=== PATIENT | male | born 1980 | race Caucasian/White ===

== ENCOUNTER 2023-07-10 17:54 | Emergency (ER) | payer OTHER, SELFPAY ==
--- NOTE | ~2023-07-10 | CT_ITS ---
EXAMINATION: CT abdomen pelvis w con INDICATION: Weight loss, abdominal pain TECHNIQUE: Computed tomographic images of the abdomen and pelvis were obtained after the administrati on of 100 cc of Omnipaque 350 intravenous contrast. The dose-length product (DLP) was 225.71 mGy-cm. Automated exposure control and iterative reconstruction technique were employed. COMPARISON: None available FINDINGS: Minimal dependent atelectasis is present in the lung bases. The heart size is normal. There is a 3 mm cyst of the liver. Punctate calcifications in an otherwise normal spleen likely represent healed granulomatous disease. The pancreas, gallbladder, and adrenal glands are normal. The kidneys a re unremarkable. No pathologically enlarged abdominal or pelvic lymph nodes are identified. Calcified atherosclerosis is noted. No free intraperitoneal gas or evidence of bowel obstruction. A moderate v olume of colonic stool is present. IMPRESSION: 1. Constipation Reviewed, dictated and finalized at location F. IMPRESSION: 1. Constipation
[2023-07-10 17:55] VITALS: BP 128/97; PULSE 88; RESP 17; O2SAT 97
--- NOTE | 2023-07-10 18:26 | ECG_ITS ---
Measurements Intervals [place] Rate: 75 P: 78 [place]: 149 QRS: 82 QRSD: 110 T: 70 QT: 377 QTc: 422 Interpretive Statements SINUS RHYTHM WITH SINUS ARRHYTHMIA INCOMPLETE RIGHT BUNDLE BRANCH BLOCK BORDERLINE ECG NO PREVIOUS ECG AVAILABLE FOR COMPARISON Electronically Signed On 07-11-2023 6:15:17 CDT by Cecilio Bradley D.O.
[2023-07-10] MEDS: ONDANSETRON INJ 4 MG/2 ML VIAL IV PUSH (18:53)
[2023-07-10] MEDS: SODIUM CHLORIDE 0.9% IV 1,000 ML 999 ML IV CONT (18:53)
[2023-07-10 18:54] LABS: Appearance Urine Clear (Clear); Bacteria Urine None Seen /hpf; Bilirubin Urine Negative (Negative); Blood Urine Trace (Negative); Color Urine Yellow (Yellow); Glucose Urine UA Negative (Negative); Ketones Urine 2+ mg/dL (Negative); Leukocyte Esterase Ur Negative LEU/UL (Negative); Nitrate Urine Negative (Negative); Non Pathogenic Casts 0-2; Protein Urine Negative (Negative); RBC Urine 0-2 /hpf (0-2); Specific Grav Ur 1.008 (1.001-1.035); Squamous Epithelial Cell Urine None seen /hpf (Few); WBC Urine 0-5 /hpf
[2023-07-10 18:55] LABS: Add Urine Microscopic? YES
--- NOTE | 2023-07-10 19:08 | PC.NURSE ---
Assumed care of pt from VANESA Cole at this time.
[2023-07-10 19:20] VITALS: BP 119/96; PULSE 84; RESP 11; O2SAT 100
[2023-07-10 19:23] LABS: Basophils Absolute Auto 0.1 K/mm3 (0.0-0.1); Basophils Percent Auto 0.8 % (0.2-1.2); Eosinophils Percent Auto 0.1 % (0-4.4); Hematocrit 41.3 % (42.0-52.0); Immature Granulocyte Absolute 0.02 K/mm3 (0.00-0.031); Immature Granulocyte Percent A 0.2 % (0-0.5); Lymphocytes Absolute Auto 1.67 K/mm3 (0.9-3.2); Mean Corpuscular HGB Conc 33.9 g/dl (32-36); Mean Corpuscular Volume 88.4 fl (80-100); Mean Platelet Volume 10.2 fl (7.4-10.4); Monocytes Absolute Auto 0.4 K/mm3 (0.1-0.6); Monocytes Percent Auto 4.7 % (2.6-8.5); Neutrophils Absolute Auto 6.2 K/mm3 (1.3-6.7); Neutrophils Percent Auto 74.2 % (45.5-73.1); Platelet Count Result 252 k/mm3 (150-375); Red Blood Count 4.67 M/mm3 (4.6-6.20); Red Cell Distribution Width 12.2 % (11.5-14.5); White Blood Count 8.3 K/mm3 (4.5-10.0)
[2023-07-10 19:26] LABS: Influenza A QL RT-PCR Negative (Negative); Influenza B QL RT-PCR Negative (Negative); RSV RNA, RT-PCR Negative (Negative); SARS-CoV-2 RNA PCR Negative (Negative)
[2023-07-10 19:33] LABS: Ethanol < 10 mg/dL (<10)
[2023-07-10 19:34] LABS: Amphetamine Screen Urine Negative (Negative); Barbiturate Screen Urine Negative (Negative); Benzodiazepines Screen Urine Negative (Negative); Cannabinoid Screen Urine Negative (Negative); Cocaine Screen Urine Negative (Negative); Methadone Screen Urine Negative (Negative); Opiate Screen Urine Negative (Negative); Phencyclidine Screen Urine Negative (Negative)
[2023-07-10 19:35] LABS: Alanine Aminotransferase 15 U/L (6-50); Albumin Level 4.3 g/dL (3.5-5.1); Alkaline Phosphatase 133 U/L (38-126); Anion Gap 8 mmol/L (8-16); Aspartate Amino Transferase 23 U/L (17-59); Bilirubin,Total 1.1 mg/dL (0.2-1.3); Blood Urea Nitrogen 8 mg/dL (9-20); Calcium 8.7 mg/dL (8.4-10.2); Carbon Dioxide 24 mmol/L (22-30); Chloride 106 mmol/L (98-107); Estimated CRCL calculation 114 ml/min; Estimated Glomerular Filt Rate > 60; Glucose 101 mg/dL (65-110); Magnesium 2.3 mg/dL (1.6-2.3); Potassium 3.6 mmol/L (3.4-5.0); Sodium 138 mmol/L (137-145)
[2023-07-10 19:46] VITALS: BP 134/88; PULSE 72; RESP 16; O2SAT 100
[2023-07-10 19:46] LABS: Troponin I < 0.012 ng/mL (0.000-0.034)
[2023-07-10 20:16] VITALS: BP 127/90; PULSE 74; RESP 17; O2SAT 100
[2023-07-10] MEDS: diphenhydrAMINE HCl INJ 50 MG/ML VIAL 25 MG IV PUSH (20:26)
[2023-07-10] MEDS: METOCLOPRAMIDE HCL INJ 10 MG/2 ML VIAL IV PUSH (20:27)
--- NOTE | 2023-07-10 21:05 | ED.SYNCOPE ---
HPI - Syncope General Chief Complaint: Syncope Stated Complaint: syncopal Time Seen by Provider: 07/10/23 18:26 History of Present Illness HPI narrative: Patient was at work earlier when he felt nauseous like he was going to pass out, call for help, and then he was found passed out in his truck, per bystanders he passed out again after this, no signs of seizures or seizure-like activity, no postictal state, no chest pain or difficulty breathing. He tells me that he has been dealing with nausea vomiting and abdominal pain on and off for a while now, was started on Zofran by his doctor still quite nauseous, worse when he wakes up and feels like he cannot keep anything down. Related Data Allergies Allergy/AdvReac Type Severity Reaction Status Date / Time azithromycin Allergy Unknown HIVES Verified 05/31/23 13:54 lamotrigine Allergy Unknown abd pain Verified 05/31/23 13:54 Review of Systems Review of Systems: CONST: No fever. HEENT: No sore throat C/V: No chest pain RESP: No cough GI: Reports abdominal pain, nausea, vomiting : No dysuria. M/S: No joint pain. SKIN: No rash. NEURO: Syncope PSYCH: [No depression] [facility] Past Medical History Medical History History of seizure disorder Insomnia Major depressive disorder, recurrent, moderate Tobacco use Varicella zoster Family History Family History Mother Hypertension Family history of heart disease in male family member before age 55 Father Family history of diabetes mellitus in first degree relative Social History Social History Social History: Smoking packs per day: 1 Smoking cigarettes per day: 20.0 Years smoked: 28 Smoking pack-years: 28.00 Smoking status: Current every day smoker Tobacco type: cigarettes Second hand tobacco smoke exposure: Yes Alcohol intake: never Substance use: never Substance use type: does not use Living arrangements: with family Occupation/Education: occupation Gender identity (if verbalized by the patient): Male Sexual Orientation (if Verbalized by the Patient): Straight or Heterosexual Exam Narrative: EXAMINATION OF ORGAN SYSTEMS/BODY AREAS: Constitutional: Vital signs per nursing GENERAL:[No acute distress, non-toxic appearing.] HEAD: Normal with no signs of head trauma. EYES: EOMI, conjunctiva normal ENT: Hearing grossly intact LUNGS: Nonlabored breathing. HEART: [Regular rate and rhythm] ABD: [Soft], mild discomfort to palpation upper abdomen EXT: Normal range of motion SKIN: [No rashes or lesions.] NEURO: [Alert and oriented x 3. No gross focal sensory or strength deficits.] PSYCH: Normal affect Course Vital Signs Vital signs: Vital Signs Pulse Rate 88 07/10/23 17:55 Respiratory Rate 17 07/10/23 17:55 Blood Pressure 128/97 H 07/10/23 17:55 Pulse Oximetry 97 07/10/23 17:55 Oxygen Delivery Room Air 07/10/23 17:55 Pulse Rate 63 07/10/23 21:35 Respiratory Rate 16 07/10/23 21:35 Blood Pressure 111/79 07/10/23 21:35 Pulse Oximetry 100 07/10/23 21:35 Oxygen Delivery Room Air 07/10/23 17:55 MDM - Syncope MDM Narrative Medical decision making narrative: Electronic medical record was reviewed. Patient presented to the ED with complaint of syncope after 1 week of [abdominal pain and vomiting]. Vitals [were within acceptable limits]. Physical exam revealed well-appearing patient with soft, minimally tender abdomen. Based on the patient's history and physical exam, my differential includes but is not limited to [gastritis, gastroenteritis, cholecystitis, pancreatitis, appendicitis, dehydration; patient adamantly denies any illicit drug use or alcohol use, I will have low concern for cardiac etiology without any chest pain or difficulty breathing, and given that he did h
[2023-07-10 21:35] VITALS: BP 111/79; PULSE 63; RESP 16; O2SAT 100
[2023-07-10] MEDS: FAMOTIDINE 20 MG TABLET PO (21:35)
[2023-07-10] MEDS: MAG HYDROX/AL HYDROX/SIMETH 30 ML UDC PO (21:35)
[2023-07-10 21:57] VITALS: BP 110/82; PULSE 67; RESP 15; O2SAT 99
== END 2023-07-10 22:01 | disposition home or self-care (01) ==
PROVIDERS: Emergency Provider Emergency Medicine; PCP Family Medicine
DX: E86.0 Dehydration (principal); R55 Syncope and collapse; R11.2 Nausea with vomiting, unspecified; G40.909 Epilepsy, unspecified, not intractable, without status epilepticus; F17.210 Nicotine dependence, cigarettes, uncomplicated
CPT/HCPCS: 36415; 74177; 80053; 80307; 81001; 83735; 84484; 85025; 87637; 93005; 96361; 96374; 96375; 99284; A9270; J1200; J2405; J2765; J7030; Q9967

== ENCOUNTER 2023-09-11 09:11 | Outpatient (CLI) | payer OTHER, SELFPAY ==
--- NOTE | 2023-09-11 09:26 | EST_ITS ---
Patient Info Name: Garfield Rosa Age: 43 years : 1980 Gender: Male Ht: 72 in Wt: 147 lbs BSA: 1.83 m2 HR: 86 bpm BP: 154 / 95 mmHg Heart Rhythm: Sinus Rhythm Exam Date: 09/11/2023 9:39 AM Exam Location: Echo Lab Patient Status: Outpatient Admit Date: 09/11/2023 Staff Ordering Physician: Cecilio Bradley DO Attending Provider: Cecilio Bradley DO Exercise Technologist: Asha Sibley CT Exercise Physician: Cecilio Bradley DO Exam Type: CA stress test treadmill Study Info A treadmill exercise stress test was performed. Summary 1. 1. Negative Dominick exercise stress test for ischemic ST changes by ECG criteria. 2. 2. Good functional capacity, achieving 12 METs of workload. 3. 3. Baseline hypertension. 4. 4. Appropriate HR response to exercise. 5. 5. Appropriate HR recovery at 1 minute post exercise. 6. 6. No imaging with stress testing. 7. 7. Patient informed of the above results. Protocol: Dominick Stress ECG Details Stage: REST Duration (min): 1 min : 5 sec Speed (mph): 0.0 Grade (%): 0 HR (bpm): 88 SBP (mmHg): 154 DBP (mmHg): 95 METS: --- Stage: REST Duration (min): 11 min : 34 sec Speed (mph): 0.0 Grade (%): 0 HR (bpm): 82 SBP (mmHg): 154 DBP (mmHg): 95 METS: --- Stage: STAGE 1 Duration (min): 1 min : 0 sec Speed (mph): 1.7 Grade (%): 10 HR (bpm): 104 SBP (mmHg): 154 DBP (mmHg): 95 METS: --- Stage: STAGE 1 Duration (min): 2 min : 0 sec Speed (mph): 1.7 Grade (%): 10 HR (bpm): 110 SBP (mmHg): 154 DBP (mmHg): 95 METS: --- Stage: STAGE 1 Duration (min): 3 min : 0 sec Speed (mph): 1.7 Grade (%): 10 HR (bpm): 110 SBP (mmHg): 134 DBP (mmHg): 95 METS: --- Stage: STAGE 2 Duration (min): 1 min : 0 sec Speed (mph): 2.5 Grade (%): 12 HR (bpm): 111 SBP (mmHg): 134 DBP (mmHg): 95 METS: --- Stage: STAGE 2 Duration (min): 2 min : 0 sec Speed (mph): 2.5 Grade (%): 12 HR (bpm): 120 SBP (mmHg): 156 DBP (mmHg): 94 METS: --- Stage: STAGE 2 Duration (min): 3 min : 0 sec Speed (mph): 2.5 Grade (%): 12 HR (bpm): 120 SBP (mmHg): 156 DBP (mmHg): 94 METS: --- Stage: STAGE 3 Duration (min): 1 min : 0 sec Speed (mph): 3.4 Grade (%): 14 HR (bpm): 130 SBP (mmHg): 176 DBP (mmHg): 115 METS: --- Stage: STAGE 3 Duration (min): 2 min : 0 sec Speed (mph): 3.4 Grade (%): 14 HR (bpm): 137 SBP (mmHg): 176 DBP (mmHg): 115 METS: --- Stage: STAGE 3 Duration (min): 3 min : 0 sec Speed (mph): 3.4 Grade (%): 14 HR (bpm): 133 SBP (mmHg): 132 DBP (mmHg): 91 METS: --- Stage: STAGE 4 Duration (min): 1 min : 0 sec Speed (mph): 4.2 Grade (%): 16 HR (bpm): 151 SBP (mmHg): 132 DBP (mmHg): 91 METS: --- Stage: STAGE 4 Duration (min): 2 min : 0 sec Speed (mph): 4.2 Grade (%): 16 HR (bpm): 156 SBP (mmHg): 182 DBP (mmHg): 96 METS: ---
== END 2023-09-11 09:12 | disposition home or self-care (01) ==
LOC: ANHCARD 09:13
PROVIDERS: PCP Family Medicine; Visit Provider Internal Medicine Cardiovascular Disease
DX: R07.9 Chest pain, unspecified (principal)
CPT/HCPCS: 93017

== ENCOUNTER 2024-09-22 12:00 | Emergency (ER) | payer OTHER, SELFPAY ==
--- NOTE | ~2024-09-22 | XR_ITS ---
EXAMINATION: XR chest 2V Exam Date/Time: 09/22/2024 13:50 TOPOGRAPHICAL DRAFTER HISTORY: productive cough Comparison: 12/02/2018. RESULT: Lines, tubes, and devices: None. Lungs and pleura: Clear. Cardiomediastinal silhouette: Stable. Other: No acute osseous or upper abdominal finding. IMPRESSION: No acute cardiopulmonary process. Reviewed, dictated and finalized at location K. GRAPHICAL DRAFTER
[2024-09-22 12:26] VITALS: BP 132/89; PULSE 92; RESP 24; TEMP 37.2; O2SAT 99
--- NOTE | 2024-09-22 13:15 | ED_ITS ---
HPI - URI/Sore Throat General Chief Complaint: Upper Respiratory Infection Stated Complaint: difficulty breathing,pain center of chest,cough Time Seen by Provider: 09/22/24 13:17 History of Present Illness HPI Narrative: Patient presents with complaints of wheezing and productive cough that is been present for couple of days. He is unsure fever status. He does report chills and sweats. Patient does report history of COPD. He reports that daughter who lives in household was recently treated for ?walking pneumonia?. He is concerned because his symptoms are quite similar to hers. He reports that he has had decreased energy, fatigue. He denies any shortness of breath. He voic es no other concerns or complaints this time. States that he has been taking ibuprofen intermittently for symptoms Related Data Allergies Allergy/AdvReac Type Severity Reaction Status Date / Time azithromycin Allergy Unknown HIVES Verified 09/22/24 12:31 lamotrigine Allergy Unknown abd pain Verified 09/22/24 12:31 Review of Systems Review of Systems: All systems reviewed & are unremarkable except as noted in HPI and below Constitutional: Constitutional: Reports as per HPI and Reports no additional constitutional complaints ENT: Reports system reviewed and no additional complaints, except as documented Cardiovascular: Cardiovascular: Reports no additional cardiovascular complaints Respiratory: Respiratory: Reports no additional respiratory complaints, Reports change in phlegm color, Reports chest congestion, Reports cough, Reports excessive phlegm production and Reports pain with cough Gastrointestinal: Gastrointestinal: Reports no additional gastrointestinal complaints PMFSH Past Medical History Medical History Varicella zoster History of seizure disorder Tobacco use Insomnia Major depressive disorder, recurrent, moderate Family History Family History Mother Hypertension Family history of heart disease in male family member before age 55 Father Family history of diabetes mellitus in first degree relative Social History Social History Social History: Smoking packs per day: 1 Smoking cigarettes per day: 20.0 Years smoked: 28 Smoking pack-years: 28.00 Smoking status: Current every day smoker Tobacco type: cigarettes Second hand tobacco smoke exposure: Yes Alcohol intake: never Substance use: never Substance use type: does not use Do You Feel Safe in your Home?: Yes Lack of Transportation: No Lack of Food: Never True Current Housing: I Have Housing Concerned About Future Housing: No Difficulty Paying Gas/Electric Bills: No Difficulty Paying for Meds: No Currently Unemployed: No Education: Don't Know Difficulty w/ Childcare or Family Care: No Living arrangements: with family Occupation/Education: occupation Gender identity (if verbalized by the patient): Male Sexual Orientation (if Verbalized by the Patient): Straight or Heterosexual Exam Const: General: cooperative, no acute distress, alert and awake Orientation/consciousness: oriented to person, oriented to place and oriented to time HENMT: Head: normal to inspection Ears: TM's normal bilaterally Mouth: Yes moist mucous membranes Throat: posterior oropharynx abnormal erythema Resp: Effort & Inspection: normal respiratory effort and able to speak in complete sentences Auscultation: crackles bilateral at the base, no rales, no rhonchi, no wheezes and diminished lung sounds Cardio: Palpation: normal PMI Rate: regular rate Rhythm: regular rhythm Heart sounds: S1 normal heart sound present and S2 normal heart sound present Neuro: General: oriented to person, oriented to place and oriented to time Cranial nerves: Yes CN's II-XII intact bilaterally Psych: Appearance: grossly normal Thought process: Normal thought process present Insight: Good insight present (Psych) Judgement: Good judgement present (Psych) Course Course Level of Care: Express Care Visit Vital Signs Vital signs: Vital Signs Temperature 98.9 F 09/22/24 12:26 Pulse Rate 92 09/22/24 12:26 Respiratory Rate 24 H 09/22/24 12:26 Blood Pressure 132/89 09/22/24 12:26 Pulse Oximetry 99 09/22/24 12:26 Oxygen Delivery Room Air 09/22/24 12:26 Temperature 98.9 F 09/22/24 12:26 Pulse Rate 92 09/22/24 12:26 Respiratory Rate 24 H 09/22/24 12:26 Blood Pressure 132/89 09/22/24 12:26 Pulse Oximetry 99 09/22/24 12:26 Oxygen Delivery Room Air 09/22/24 12:26 MDM - URI/Sore Throat MDM Narrative Medical decision making narrative: Patient with daughter in home recently treated for atypical pneumonia. Patient with symptoms concerning for same. X-ray is clear. Patient does have history o f COPD. Admits that he is not taking medications for this. He is not in any respiratory distress, but does have crackles at bilateral bases, diminished lung sounds. Cover with doxycycline as patient is allergic to azithromycin. Start bronchodilator, steroid burst. Follow with primary care provider. Emergency department for new or worse symptoms. Discharge instructions reviewed with patient, as well as provided in writing per nursing staff. The instructions also include specific and strict return/GO TO THE ER as well as f/u information. All questions have been answered, and the patient deny any further questions with discharge and discharge plan. Some parts of this dictation were generated by voice recognition software and may contain typographical and/or grammatical inaccuracies. Differential Diagnosis Differential diagnosis: Likely upper respiratory infection, otitis media, sinusitis, viral infection, bronchitis and influenza Medical Records Attestation: I reviewed the patient's medical records. Imaging Data Attestation: I personally reviewed and interpreted this imaging study as follows: My impression: Negative for acute process Radiologist's impression: [facility] [address] [place] [address] XRay Report Signed Patient: Garfield Rosa : 1980 MR#: [id number] Age: 44 Acct:[id number] Loc: [facility] ADM Date: 09/22/24Attending Dr: Ordering Physician: Jennifer Zhao FNP Date of Service: 09/22/24 Procedure(s): XR chest 2V Accession Number(s): [id number] cc: Jennfier Zhao FNP; Tricia Soriano MD~ EXAMINATION: XR chest 2V Exam Date/Time: 09/22/2024 13:50 CRYPTOLOGIC TECHNICIAN HISTORY: productive cough Comparison: 12/02/2018. RESULT: Lines, tubes, and devices: None. Lungs and pleura: Clear. Cardiomediastinal silhouette: Stable. Other: No acute osseous or upper abdominal finding. IMPRESSION: No acute cardiopulmonary process. Reviewed, dictated and finalized at location K. TOLOGIC TECHNICIAN Dictated By: Tesfaye Lewis MD 09/22/24 1403 Signed By: <Electronically signed by Tesfaye Lewis MD in OV> 09/22/24 140 Discharge Plan Discharge Clinical Impression: Atypical pneumonia Patient Disposition: Home, Self-Care Condition: Stable Instructions: Antibiotic Form, Community Acquired Pneumonia (ED) Additional Instructions: Take all medications as prescribed. Follow-up with primary care provider. Emergency department for new or worse symptoms Patient Language: Upper Sorbian Prescriptions: New doxycycline hyclate 100 mg capsule 100 mg PO BID Qty: 20 0RF prednisone 50 mg tablet 50 mg PO DAILY Qty: 5 0RF albuterol sulfate [Ventolin HFA] 90 mcg/actuation HFA aerosol inhaler 2 puff inhalation QID PRN (Reason: shortness of breath or wheezing) Qty: 8.5 0RF No Action triamcinolone acetonide 0.1 % cream 1 applic topical BID Qty: 30 0RF paroxetine HCl [Paxil] 20 mg tablet 20 mg PO DAILY Qty: 90 1RF omeprazole 40 mg capsule,delayed release(DR/EC) See Rx Instructions .ROUTE .COMPLEX Qty: 90 0RF Dose Instruction: TAKE 1 CAPSULE BY MOUTH DAILY Rx Instructions: TAKE 1 CAPSULE BY MOUTH DAILY Follow-up/Referrals: Tricia Soriano MD [Primary Care Provider] - 1 Week Stand Alone Forms: Work/School Release IP Time of Disposition: 14:19
== END 2024-09-22 14:22 | disposition home or self-care (01) ==
PROVIDERS: Emergency Provider Nurse Practitioner Family; PCP Family Medicine
DX: J18.9 Pneumonia, unspecified organism (principal); F17.210 Nicotine dependence, cigarettes, uncomplicated
CPT/HCPCS: 71046; 99213; G0463

== ENCOUNTER 2024-10-14 16:16 | Emergency (ER) | payer OTHER, SELFPAY ==
[2024-10-14 16:29] VITALS: BP 143/97; PULSE 95; RESP 16; TEMP 36.6; O2SAT 100
--- NOTE | 2024-10-14 18:00 | PC.NURSE ---
pt. called multiple times for triage. no answer.
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
--- OUTSIDE RECORDS SUMMARY | 2024-10-21 14:14 | XMS_ITS | Patient Health Summary ---
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 EXAM: CT Spine thoracic and lumbar reconstruction CLINICAL INDICATION: Trauma TECHNIQUE: 2 mm axial images through thoracic and lumbar spine obtained from a prior body CT. 2D sagittal and coronal reformatted images werealso obtained from source image data set. COMPARISON: None FINDINGS: Thoracic spine: Thoracic spine alignment is normal. No acute thoracic spine fracture or traumatic spondylolisthesis. No significant traumatic acute disc herniation. Prevertebral and posterior paraspinal soft tissues demonstrate no significant acute soft tissue injury. Mild multilevel degenerative changes are present. Lumbar spine: Lumbar spine alignment is normal. No acute lumbar spine fracture or traumatic spondylolisthesis. No significant traumatic acute disc herniation. Prevertebral and posterior paraspinal soft tissues demonstrate no significant acute soft tissue injury. There is mild aortic atherosclerosis. IMPRESSION: No acute fracture in the thoracic or lumbar spine. Drafted by Tyesha Buckley (residential assistant) I, Dr. JAH MURRAY have personally reviewed and interpreted this examination/study. This report was electronically signed by JAH MURRAY on 08/16/2021 7:44 AM. Db Ortez MD CT ORDERABLES * CT CERVICAL SPINE WO CONTRAST - C-Spine Trauma, Spine fracture (08/15/2021 4:53 PM CDT) Anatomical Region Laterality Modality Spine Computed Tomogra phy 08/15/2021 5:05 PM CDT Impressions 08/16/2021 7:44 AM CDT IMPRESSION: No acute intracranial abnormality. EXAM: CT SPINE CERVICAL WITHOUT CONTRAST EXAM DATE: 08/15/2021 4:55 PM HISTORY: Trauma TECHNIQUE: Contiguous axial images through cervical spine were obtained without IV contrast administration. ??2D sagittal and coronal reformatted images were obtained from the source image data set. COMPARISON: None FINDINGS: No acute cervical spine fracture or traumatic spondylolisthesis. No significant traumatic acute disc herniation. ??Prevertebral and posterior paraspinal soft tissues demonstrate no significant acute soft tissue injury. Mild multilevel degenerative changes are present. C6-C7: Chronic disc height loss with anterior and posterior disc bulges with endplate osteophytes and uncovertebral joint hypertrophy are noted. Moderate right and severe left foraminal stenoses with a mild central spinal stenosis. IMPRESSION: 1. No acute fracture of the cervical spine. EXAM: CT Spine thoracic and lumbar reconstruction CLINICAL INDICATION: Trauma TECHNIQUE: 2 mm axial images through thoracic and lumbar spine obtained from a prior body CT. 2D sagittal and coronal reformatted images were also obtained from source image data set. COMPARISON: None FINDINGS: Thoracic spine: Thoracic spine alignment is normal. ??No acute thoracic spine fracture or traumatic spondylolisthesis. No significant traumatic acute disc herniation. ??Prevertebral and posterior paraspinal soft tissues demonstrate no significant acute soft tissue injury. Mild multilevel degenerative changes are present. Lumbar spine: Lumbar spine alignment is normal. ??No acute lumbar spine fracture or traumatic spondylolisthesis. No significant traumatic acute disc herniation. ??Prevertebral and posterior paraspinal soft tissues demonstrate no significant acute soft tissue injury. There is mild aortic atherosclerosis. IMPRESSION: No acute fracture in the thoracic or lumbar spine. Drafted by Tyesha Buckley (residential assistant) I, Dr. JAH MURRAY have personally reviewed and interpreted this examination/study. This report was electronically signed by JAH MURRAY ??on 08/16/2021 7:44 AM . Narrative 08/16/2021 7:44 AM CDT EXAM: CT BRAIN WITHOUT CONTRAST CLINICAL INDICATION: Trauma TECHNIQUE: Contiguous axial images through head were obtained without intravenous contrast administration. ??Brain and bone window images were obtained. COMPARISON: No prior. FINDINGS: Artifact in the posterior fossa from dental metal. Brain volume is normal for age. No significant midline shift or hydrocephalus. No large acute infarction, hemorrhage, mass or abnormal extra-axial fluid collection. No acute fracture or bony abnormality. No acute abnormality involving the orbits bilaterally. Visualized parts of paranasal sinuses demonstrate a mild mucosal disease. Visualized mastoids and tympanic cavities demonstrate no significant opacification. Procedure Note Jah Murray MD - 08/16/2021 EXAM: CT BRAIN WITHOUT CONTRAST CLINICAL INDICATION: Trauma TECHNIQUE: Contiguous axial images through head were obtained without intravenous contrast administration. Brain and bone window images were obtained. COMPARISON: No prior. FINDINGS: Artifact in the posterior fossa from dental metal. Brain volume is normal for age. No significant midline shift or hydrocephalus. No large acute infarction, hemorrhage, mass or abnormal extra-axialfluid collection. No acute fracture or bony abnormality. No acute abnormality involving the orbits bilaterally. Visualized parts of paranasal sinuses demonstrate a mild mucosaldisease. Visualized mastoids and tympanic cavities demonstrate no significant opacification. IMPRESSION: No acute intracranial abnormality. EXAM: CT SPINE CERVICAL WITHOUT CONTRAST EXAM DATE: 08/15/2021 4:55 PM HISTORY: Trauma TECHNIQUE: Contiguous axial images through cervical spine were obtained without IV contrast administration. 2D sagittal and coronal reformatted images were obtained from the source image data set. COMPARISON: None FINDINGS: No acute cervical spine fracture or traumatic spondylolisthesis. No significant traumatic acute disc herniation. Prevertebral and posterior paraspinal soft tissues demonstrate no significant acute soft tissue injury. Mild multilevel degenerative changes are present. C6-C7: Chronic disc height loss with anterior and posterior disc bulges with endplate osteophytes and uncovertebral joint hypertrophy are noted. Moderate right and severe left foraminal stenoses with a mild central spinal stenosis. IMPRESSION: 1. No acute fracture of the cervical spine. EXAM: CT Spine thoracic and lumbar reconstruction CLINICAL INDICATION: Trauma TECHNIQUE: 2 mm axial images through thoracic and lumbar spine obtained from a prior body CT. 2D sagittal and coronal reformatted images werealso obtained from source image data set. COMPARISON: None FINDINGS: Thoracic spine: Thoracic spine alignment is normal. No acute thoracic spine fracture or traumatic spondylolisthesis. No significant traumatic acute disc herniation. Prevertebral and posterior paraspinal soft tissues demonstrate no significant acute soft tissue injury. Mild multilevel degenerative changes are present. Lumbar spine: Lumbar spine alignment is normal. No acute lumbar spine fracture or traumatic spondylolisthesis. No significant traumatic acute disc herniation. Prevertebral and posterior paraspinal soft tissues demonstrate no significant acute soft tissue injury. There is mild aortic atherosclerosis. IMPRESSION: No acute fracture in the thoracic or lumbar spine. Drafted by Tyesha Buckley (residential assistant) I, Dr. JAH MURRAY have personally reviewed and interpreted this examination/study. This report was electronically signed by JAH MURRAY on 08/16/2021 7:44 AM. Db Ortez MD CT ORDERABLES * CT HEAD WO CONTRAST - Head Trauma, CSF leak, mental status changes (08/15/2021 4:53 PM CDT) Anatomical Region Laterality Modality Head Computed Tomogra phy 08/15/2021 5:05 PM CDT Impressions 08/16/2021 7:44 AM CDT IMPRESSION: No acute intracranial abnormality. EXAM: CT SPINE CERVICAL WITHOUT CONTRAST EXAM DATE: 08/15/2021 4:55 PM HISTORY: Trauma TECHNIQUE: Contiguous axial images through cervical spine were obtained without IV contrast administration. ??2D sagittal and coronal reformatted images were obtained from the source image data set. COMPARISON: None FINDINGS: No acute cervical spine fracture or traumatic spondylolisthesis. No significant traumatic acute disc herniation. ??Prevertebral and posterior paraspinal soft tissues demonstrate no significant acute soft tissue injury. Mild multilevel degenerative changes are present. C6-C7: Chronic disc height loss with anterior and posterior disc bulges with endplate osteophytes and uncovertebral joint hypertrophy are noted. Moderate right and severe left foraminal stenoses with a mild central spinal stenosis. IMPRESSION: 1. No acute fracture of the cervical spine. EXAM: CT Spine thoracic and lumbar reconstruction CLINICAL INDICATION: Trauma TECHNIQUE: 2 mm axial images through thoracic and lumbar spine obtained from a prior body CT. 2D sagittal and coronal reformatted images were also obtained from source image data set. COMPARISON: None FINDINGS: Thoracic spine: Thoracic spine alignment is normal. ??No acute thoracic spine fracture or traumatic spondylolisthesis. No significant traumatic acute disc herniation. ??Prevertebral and posterior paraspinal soft tissues demonstrate no significant acute soft tissue injury. Mild multilevel degenerative changes are present. Lumbar spine: Lumbar spine alignment is normal. ??No acute lumbar spine fracture or traumatic spondylolisthesis. No significant traumatic acute disc herniation. ??Prevertebral and posterior paraspinal soft tissues demonstrate no significant acute soft tissue injury. There is mild aortic atherosclerosis. IMPRESSION: No acute fracture in the thoracic or lumbar spine. Drafted by Tyesha Buckley (residential assistant) I, Dr. JAH MURRAY have personally reviewed and interpreted this examination/study. This report was electronically signed by JAH MURRAY ??on 08/16/2021 7:44 AM . Narrative 08/16/2021 7:44 AM CDT EXAM: CT BRAIN WITHOUT CONTRAST CLINICAL INDICATION: Trauma TECHNIQUE: Contiguous axial images through head were obtained without intravenous contrast administration. ??Brain and bone window images were obtained. COMPARISON: No prior. FINDINGS: Artifact in the posterior fossa from dental metal. Brain volume is normal for age. No significant midline shift or hydrocephalus. No large acute infarction, hemorrhage, mass or abnormal extra-axial fluid collection. No acute fracture or bony abnormality. No acute abnormality involving the orbits bilaterally. Visualized parts of paranasal sinuses demonstrate a mild mucosal disease. Visualized mastoids and tympanic cavities demonstrate no significant opacification. Procedure Note Jah Murray MD - 08/16/2021 EXAM: CT BRAIN WITHOUT CONTRAST CLINICAL INDICATION: Trauma TECHNIQUE: Contiguous axial images through head were obtained without intravenous contrast administration. Brain and bone window images were obtained. COMPARISON: No prior. FINDINGS: Artifact in the posterior fossa from dental metal. Brain volume is normal for age. No significant midline shift or hydrocephalus. No large acute infarction, hemorrhage, mass or abnormal extra-axialfluid collection. No acute fracture or bony abnormality. No acute abnormality involving the orbits bilaterally. Visualized parts of paranasal sinuses demonstrate a mild mucosaldisease. Visualized mastoids and tympanic cavities demonstrate no significant opacification. IMPRESSION: No acute intracranial abnormality. EXAM: CT SPINE CERVICAL WITHOUT CONTRAST EXAM DATE: 08/15/2021 4:55 PM HISTORY: Trauma TECHNIQUE: Contiguous axial images through cervical spine were obtained without IV contrast administration. 2D sagittal and coronal reformatted images were obtained from the source image data set. COMPARISON: None FINDINGS: No acute cervical spine fracture or traumatic spondylolisthesis. No significant traumatic acute disc herniation. Prevertebral and posterior paraspinal soft tissues demonstrate no significant acute soft tissue injury. Mild multilevel degenerative changes are present. C6-C7: Chronic disc height loss with anterior and posterior disc bulges with endplate osteophytes and uncovertebral joint hypertrophy are noted. Moderate right and severe left foraminal stenoses with a mild central spinal stenosis. IMPRESSION: 1. No acute fracture of the cervical spine. EXAM: CT Spine thoracic and lumbar reconstruction CLINICAL INDICATION: Trauma TECHNIQUE: 2 mm axial images through thoracic and lumbar spine obtained from a prior body CT. 2D sagittal and coronal reformatted images werealso obtained from source image data set. COMPARISON: None FINDINGS: Thoracic spine: Thoracic spine alignment is normal. No acute thoracic spine fracture or traumatic spondylolisthesis. No significant traumatic acute disc herniation. Prevertebral and posterior paraspinal soft tissues demonstrate no significant acute soft tissue injury. Mild multilevel degenerative changes are present. Lumbar spine: Lumbar spine alignment is normal. No acute lumbar spine fracture or traumatic spondylolisthesis. No significant traumatic acute disc herniation. Prevertebral and posterior paraspinal soft tissues demonstrate no significant acute soft tissue injury. There is mild aortic atherosclerosis. IMPRESSION: No acute fracture in the thoracic or lumbar spine. Drafted by Tyesha Buckley (residential assistant) Dr. JAH Hairston have personally reviewed and interpreted this examination/study. This report was electronically signed by JAH MURRAY on 08/16/2021 7:44 AM. Db Ortez MD CT ORDERABLES * XR PELVIS 1 OR 2VW (08/15/2021 4:28 PM CDT) Anatomical Region Laterality Modality Pelvis Radiographic Aruna ging 08/15/2021 4:55 PM CDT Impressions 08/16/2021 8:18 AM CDT IMPRESSION: No acute fracture identified. Dictated by Tyesha Buckley DO (resident). Dr. KENAN Hairston MD have personally reviewed and interpreted this examination/study. This report was electronically signed by KENAN PHAM MD ??on 08/16/2021 8:18 AM . Narrative 08/16/2021 8:18 AM CDT ORDER DATE: 08/15/2021 4:28 PM EXAMINATION: XR PELVIS 1 OR 2VW HISTORY: Trauma Fracture suspected COMPARISON: No prior study is available for comparison. FINDINGS: No acute fracture is identified. The femoral heads appear well-seated within their respective acetabula. The pubic symphysis is intact. The osseous architecture and density are normal. The sacroiliac joints are intact. Procedure Note Kenan Pham MD - 08/16/2021 ORDER DATE: 08/15/2021 4:28 PM EXAMINATION: XR PELVIS 1 OR 2VW HISTORY: Trauma Fracture suspected COMPARISON: No prior study is available for comparison. FINDINGS: No acute fracture is identified. The femoral heads appear well-seated within their respective acetabula. The pubic symphysis is intact. The osseous architecture and density are normal. The sacroiliac joints are intact. IMPRESSION: No acute fracture identified. Dictated by Tyesha Buckley DO (resident). Dr. KENAN Hairston MD have personally reviewed and interpreted this examination/study. This report was electronically signed by KENAN PHAM MD on08/16/2021 8:18 AM . Db Ortez MD DIAGNOSTIC IMAGING O RDERABLES * XR CHEST 1VW PORTABLE (08/15/2021 4:27 PM CDT) Anatomical Region Laterality Modality Chest Radiographic Aruna ging 08/15/2021 4:52 PM CDT Impressions 08/16/2021 8:17 AM CDT IMPRESSION: No acute pulmonary process. Dictated by Tyesha Buckley DO (front loader residential driver). Dr. KENAN Hairston MD have personally reviewed and interpreted this examination/study. This report was electronically signed by KENAN PHAM MD ??on 08/16/2021 8:17 AM . Narrative 08/16/2021 8:17 AM CDT ORDER DATE: 08/15/2021 4:28 PM EXAMINATION: XR CHEST 1VW PORTABLE HISTORY: Trauma COMPARISON: No prior study is available for comparison. FINDINGS: There is no focal consolidation, pleural effusion, or pneumothorax. The cardiomediastinal silhouette is normal. The visible bony thorax is intact. Procedure Note Kenan Pham MD - 08/16/2021 ORDER DATE: 08/15/2021 4:28 PM EXAMINATION: XR CHEST 1VW PORTABLE HISTORY: Trauma COMPARISON: No prior study is available for comparison. FINDINGS: There is no focal consolidation, pleural effusion, or pneumothorax. The cardiomediastinal silhouette is normal. The visible bony thorax is intact. IMPRESSION: No acute pulmonary process. Dictated by Tyesha Buckley DO (front loader residential driver). I, Dr. KENAN PHAM MD have personally reviewed and interpreted this examination/study. This report was electronically signed by KENAN PHAM MD on08/16/2021 8:17 AM . Db Ortez MD DIAGNOSTIC IMAGING O RDERABLES * PTT [facility] (08/15/2021 4:25 PM CDT) APTT 30.1 23.0 - 38.4 Seconds 08/15/2021 4:49 PM CDT [facility] Comment:Suggested therapeuti c range for full dose I.V. unfractionated heparin therapy for venous thromboembolism is 71 to 109 seconds. Blood BLOOD SPECIMEN / Unknown Venipuncture / Unknown 08/15/2021 4:25 PM CDT 08/15/2021 4:32 PM CDT Db Ortez MD LAB - COAGULATION OR DERABLES [facility] [address] [place] [address], [facility] [phone] * PT-INR [facility] (08/15/2021 4:25 PM CDT) PT 13.1 12.1 - 14.8 Seconds 08/15/2021 4:48 PM CDT [facility] INR 1.0 See Comment 08/15/2021 4:48 PM CDT [facility] Comment:The suggested therap eutic range for standard coumadin (warfarin) therapy is an INR of 2.0-3.0. For high-risk patients (Mechanical Mitral Valve Prosthesis, etc.), the suggested prophylactic therapeutic range is an INR of 2.5-3.5. Blood BLOOD SPECIMEN / Unknown Venipuncture / Unknown 08/15/2021 4:25 PM CDT 08/15/2021 4:32 PM CDT Db Ortez MD LAB - COAGULATION OR DERABLES [address] [address], [place] [phone] * TYPE + SCREEN PANEL (08/15/2021 4:25 PM CDT) [facility] Antibody Screen NEG 5:21 PM CDT [facility] ABO Rh O POS 08/15/2021 5:21 PM CDT [facility] Blood Bank BLOOD SPECIMEN / Unknown Venipuncture / Unknown 08/15/2021 4:25 PM CDT 08/15/2021 4:34 PM CDT Db Ortez MD LAB - BLOOD BANK ORD ERABLES Performing Organization Address City/[facility]/ZIP Co de Phone Number [facility] [place] [address], [place] [phone] * (ABNORMAL) DIFFERENTIAL MANUAL (08/15/2021 4:25 PM CDT) [facility] WBC (corrected for NRBC) 11.0 10? 3 /uL 08/15/2021 5:43 PM CDT [facility] Total Cell Count 100 08/15/2021 5:43 PM CDT [facility] Neutrophils Absolute Manual 7.26(H) 1.60 - 7.00 10? 3 /uL 08/15/2021 5:43 PM CDT [facility] Comment:(BANDS+SEGS) x WBC = NEUT # (ANC) Lymphocyte Absolute Manual 2.97 1.10 - 3.90 10? 3 /uL 08/15/2021 5:43 PM CDT [facility] Monocytes Absolute Manual 0.55 0.26 - 1.07 10? 3 /uL 08/15/2021 5:43 PM CDT [facility] Eosinophils Absolute Manual 0.22 0.00 - 0.47 10? 3 /uL 08/15/2021 5:43 PM CDT [facility] Neutrophil % Manual 66 35 - 70 % 08/15/2021 5:43 PM T [facility] Lymphocyte % Manual 27 20 - 43 % 08/15/2021 5:43 PM T [facility] Monocytes % Manual 5 5 - 13 % 08/15/2021 5:43 PM [facility] Eosinophils % Manual 2 0 - 6 % 08/15/2021 5:43 PM T [facility] Platelet Estimate Adequate Adequate 08/15/2021 5:43 PM T [facility] RBC Morphology Normal 08/15/2021 5:43 PM T [facility] Blood BLOOD SPECIMEN / Unknown Venipuncture / Unknown 08/15/2021 4:25 PM CDT 08/15/2021 4:33 PM CDT Db Ortez MD LAB - HEMATOLOGY ORD ERABLES [facility] [address] [place] [id number], [facility] [phone] * (ABNORMAL) CBC W AUTO DIFFERENTIAL (08/15/2021 4:25 PM CDT) WBC 11.0(H) 3.5 - 10.5 10? 3 /uL 08/15/2021 4:39 PM [facility] RBC 4.60 4.30 - 5.70 10? 6 /uL 08/15/2021 4:39 PM [facility] Hemoglobin 13.8 12.0 - 17.6 g/dL 08/15/2021 4:39 PM [facility] Hematocrit 40.0 35.2 - 51.7 % 08/15/2021 4:39 PM [facility] MCV 87.0 80.7 - 98.3 fL 08/15/2021 4:39 PM [facility] MCH 30.0 26.7 - 34.0 pg 08/15/2021 4:39 PM [facility] MCHC 34.5 30.8 - 35.9 g/dL 08/15/2021 4:39 PM [facility] Platelet Count 259 150 - 400 10? 3 /uL 08/15/2021 4:39 PM CDT [facility] RDW-SD 39.9 36.0 - 50.0 fL 08/15/2021 4:39 PM CDT [facility] RDW-CV 12.6 11.2 - 14.8 % 08/15/2021 4:39 PM CDT [facility] MPV 10.2 9.4 - 12.9 fL 08/15/2021 4:39 PM CDT [facility] nRBC Absolute 0.00 0 10? 3 /uL 08/15/2021 4:39 PM CDT [facility] nRBC Auto 0.0 0 /100 WBC 08/15/2021 4:39 PM CDT [facility] Blood BLOOD SPECIMEN / Unknown Venipuncture / Unknown 08/15/2021 4:25 PM CDT 08/15/2021 4:33 PM CDT Db Ortez MD LAB - HEMATOLOGY JASEN CHRISTIANSON [address] [address], [facility] [phone] * (ABNORMAL) MAGNESIUM BLOOD (08/15/2021 4:25 PM CDT) Magnesium 1.2(L) 1.6 - 2.6 mg/dL 08/15/2021 5:28 PM CDT [facility] Blood BLOOD SPECIMEN / Unknown Venipuncture / Unknown 08/15/2021 4:25 PM CDT 08/15/2021 4:33 PM CDT Tushar Azevedo MD LAB - CHEMISTRY MAG CARNEY [address] [address], [facility] [phone] * ALCOHOL ETHYL BLOOD (08/15/2021 4:25 PM CDT) Ethanol (mg/dL) <10 <10 mg/dL 5:05 PM CDT [facility] Ethanol Calculated (g/dL) <0.010 <0.010 g/dL 08/15/2021 5:05 PM CDT [facility] Blood BLOOD SPECIMEN / Unknown Venipuncture / Unknown 08/15/2021 4:25 PM CDT 08/15/2021 4:33 PM CDT Narrative [facility] - 08/15/2021 5:05 PM CDT Ethanol Interp <10: None Detected. Depression of BASKETBALL COACH: >100 mg/dl Potentially Critical: >250 mg/dl Potentially Fatal >400 mg/dl Ethanol in the patient's blood will contribute to the osmolar gap. Ethanol's contribution to the osmolar gap can be estimated by dividing the concentration of ethanol in mg/dL by 4.6. This test is for clinical use only and does not equal a FELIPE for legal purposes. Db Ortze MD LAB - CHEMISTRY MAG [facility]NEY [facility] Organization Address City/State/ZIP Co de Phone Number [facility] [address] [place] [address], [facility] [phone]
--- OUTSIDE RECORDS SUMMARY | 2024-10-21 14:14 | XMS_ITS | Encounter Summary ---
Author Organization [facility] Address [address] [place] [address] Care Team Providers Care Steam Boiler Fireman Name Role Phone Unavailable Primary Care Provider Unavailabl e Reason for Visit * Reason Comments Sinusitis sinusitis, sore thro at, nausea, chills, subjective fever, fatigue x 5 days. Encounter Details Date Type Department Care Team ([facility] st Contact Info) Description 02/09/2017 4:00 PM CDT Office Visit [facility] AT [address] [phone] Provider, Radha Gupta [facility] Acute non-recurrent maxillary sinusitis (Primary Dx) Social History Tobacco Use Types Packs/Day Years Used Date Smoking Tobacco: Former Tobacco Cessation:Counseling Given: No Sex and Gender Information Value Date Recorded Sex Assigned at Not on file Gender Identity Not on file Sexual Orientation Not on file documented as of this encounter Last Filed Vital Signs Vital Sign Reading Time Taken Comments Blood Pressure 120/60 02/09/2017 3:54 PM CDT Pulse 88 02/09/2017 3:54 PM CDT Temperature 36.9 ??C (98.4 ??F) 02/09/2017 3:54 PM CD T Respiratory Rate 20 02/09/2017 3:54 PM CDT Oxygen Saturation 97% 02/09/2017 3:54 PM CDT Inhaled Oxygen Concentration - - Weight 72.6 kg (160 lb) 02/09/2017 3:54 PM CDT Height 180.3 cm (5' 11 ) 02/09/2017 3:54 PM CDT Body Mass Index 22.32 02/09/2017 3:54 PM CDT documented in this encounter Patient Instructions * Patient Instructions* Evette Hopper, ORGAN FIXER-CONTAINER FINISHING INSPECTOR - 02/09/2017 4:05 PM CDT Sinusitis WHAT YOU NEED TO KNOW: What is sinusitis? Sinusitis is inflammation or infection of your sinuses. It is most often caused by a virus. Acute sinusitis may last up to 12 weeks. Chronic sinusitis lasts longer than 12 weeks. Recurrent sinusitis is when you have 3 or more episodes of sinusitis in 1 year. What increases my risk for sinusitis? ?? Medical conditions, such as an upper respiratory infection, allergies, asthma, or cystic fibrosis ?? Dental infections or procedures, such as gum infections, tooth decay, tooth removal, root canal,or a tooth implant ?? Abnormal sinus structure, such as nasal growths, swollen tonsils, or a deviated septum ?? A weak immune system, from diseases such as diabetes or HIV ?? Smoking What are the signs and symptoms of sinusitis? ?? Fever ?? Pain, pressure, redness, or swelling around the forehead, cheeks, or eyes ?? Thick yellow or green discharge from your nose ?? Tenderness when you touch your face over your sinuses ?? Dry cough that happens mostly at night or when you lie down ?? Headache and face pain that is worse when you lean forward ?? Teeth pain or pain when you chew How is sinusitis diagnosed? Your healthcare provider will examine you and ask about your symptoms. He will check inside your nose using a nasal speculum. This is a small tool used to open your nostrils. A sample of the mucus from your nose may show what germ is causing your infection. If you have chronic sinusitis, you may need imaging tests. How is sinusitis treated? Your symptoms may go away on their own. You may need any of the following: ?? Acetaminophen decreases pain and fever. It is available without a doctor's order. Ask how much to take and how often to take it. Follow directions. Acetaminophen can cause liver damage if not taken correctly. ?? NSAIDs , such as ibuprofen, help decrease swelling, pain, and fever. This medicine is available with or without a doctor's order. NSAIDs can cause stomach bleeding or kidney problems in certain people. If you take blood thinner medicine, always ask if NSAIDs are safe for you. Always read the medicine label and follow directions. Do not give these medicines to children under 6 months of age without direction from your child's healthcare provider. ?? Nasal steroid sprays may help decrease inflammation in your nose and sinuses. ?? Decongestants help reduce swelling and drain mucus in the nose and sinuses. They may help you breathe easier. ?? Antihistamines help dry mucus in the nose and relieve sneezing. How can I manage my symptoms? ?? Rinse your sinuses. Use a sinus rinse device to rinse your nasal passages with a saline (salt water) solution. This will help thin the mucus in your nose and rinse away pollen and dirt. It will also help reduce swelling so you can breathe normally. Ask your healthcare provider how often to do this. ?? Breathe in steam. Heat a bowl of water until you see steam. Lean over the bowl and make a tent over your head with a large towel. Breathe deeply for about 20 minutes. Be careful not to get too close to the steam or burn yourself. Do this 3 times a day. You can also breathe deeply when you take ahot shower. ?? Sleep with your head elevated. Place an extra pillow under your head before you go to sleep to help your sinuses drain. ?? Drink liquids as directed. Ask your healthcare provider how much liquid to drink each day and which liquids are best for you. Liquids will thin the mucus in your nose and help it drain. Avoid drinks that contain alcohol or caffeine. ?? Do not smoke, and avoid secondhand smoke. Nicotine and other chemicals in cigarettes and cigars can make your symptoms worse. Ask your healthcare provider for information if you currently smoke and need help to quit. E-cigarettes or smokeless tobacco still contain nicotine. Talk to your healthcare provider before you use these products. How can I help prevent the spread of germs that cause sinusitis? Wash your hands often with soap and water. Wash your hands after you use the bathroom, change a child's diaper, or sneeze. Wash your hands before you prepare or eat food. When should I seek immediate care? ?? Your eye and eyelid are red, swollen, and painful. ?? You cannot open your eye. ?? You have vision changes, such as double vision. ?? Your eyeball bulges out or you cannot move your eye. ?? You are more sleepy than normal, or you notice changes in your ability to think, move, or talk. ?? You have a stiff neck, a fever, or a bad headache. ?? You have swelling of your forehead or scalp. When should I contact my healthcare provider? ?? Your symptoms get worse after 5 to 7 days. ?? Your symptoms do not go away after 10 days. ?? You have nausea and vomiting. ?? Your nose is bleeding. ?? You have questions or concerns about your condition or care. CARE AGREEMENT: You have the right to help plan your care. Learn about your health condition and how it may be treated. Discuss treatment options with your caregivers to decide what care you want to receive. You always have the right to refuse treatment. The above information is an financial aid advisor only. It is not intended as medical advice for individual conditions or treatments. Talk to your doctor, nurse or pharmacist before following any medical regimen to see if it is safe and effective for you. ?? 2016 [employer]. Information is for End User's use only and may not be sold, redistributed or otherwise used for commercial purposes. All illustrations and images included in CareNotes?? are the copyrighted property of [employer]. or [employer]. Use over the counter salt water nasal spray as needed to help decrease inflammation, dryness and thin mucus. Use an over the counter intranasal steroid nose spray after salt water nasal spray for congestion, such as Flonase, Rhinocort, Nasacort, Clarispray- 1 spray each nostril twice daily. If planning to fly, use a nasal decongestant (Vicks, Dristan or Afrin spray) 3 days prior to flying- USE FOR A MAX OF 3 DAYS ONLY. Warm salt water gargles, warm soups and decaffeinated beverages, chloraseptic spray, lozenges, ice chips, popsicles and honey for soothing sore throat. Increase water intake and rest. Ibuprofen or Tylenol for pain or fever. Mucinex over the counter for productive cough and thick nasal mucus. Add humidity to help with nasal dryness. Avoid antihistamines as they cause more dryness. Warm, moist compresses to face for comfort documented in this encounter Progress Notes * Evette Hopper, ORGAN FIXER-CONTAINER FINISHING INSPECTOR - 02/09/2017 3:59 PM CDT [facility] Chief Complaint Patient presents with ??? Sinusitis sinusitis, sore throat, nausea, chills, subjective fever, fatigue x 5 days. SUBJECTIVE: General The history is provided by the patient. This is a new problem. The current episode started more than 2 days ago. The problem occurs constantly. The problem has not changed since onset.Body Location: sinusitis, sore throat, nausea, chills, subjective fever, fatigue, aches x 5 days. Associated symptoms include headaches. Treatments tried: motrin. No past medical history on file. No current outpatient prescriptions on file prior to visit. No current facility-administered medications on file prior to visit. Past Surgical History: Procedure Laterality Date ??? Cyst Removal Social History Social History ??? Marital status: Spouse name: N/A ??? Number of children: N/A ??? Years of education: N/A Occupational History ??? Not on file. Social History Main Topics ??? Smoking status: Former Smoker ??? Smokeless tobacco: Not on file ??? Alcohol use Not on file ??? Drug use: Not on file ??? Sexual activity: Not on file Other Topics Concern ??? Not on file Social History Narrative ??? No narrative on file Family History Problem Relation Age of Onset ??? Heart defect Mother ??? Diabetes Father Current Outpatient Prescriptions Medication Sig Dispense Refill ??? amoxicillin (AMOXIL) 875 MG tablet Take 1 Tab by mouth 2 times daily for 10 days 20 Tab 0 ??? fluticasone propionate (FLONASE) 50 MCG/ACT nasal spray [place] 1 [place]t into each nostril 2 timesdaily 1 Bottle 0 No current facility-administered medications for this visit. No Known Allergies REVIEW OF SYSTEMS: Review of Systems Constitutional: Positive for chills, fever and malaise/fatigue. HENT: Positive for congestion and sore throat. Respiratory: Negative. Cardiovascular: Negative. Neurological: Positive for headaches. OBJECTIVE: General appearance: alert, well appearing, and in no distress. BP 120/60 (BP SITE: LEFT ARM, BP POSITION: SITTING, BP CUFF SIZE: Adult) Pulse 88 Temp 98.4 ??F (Oral) Resp 20 Ht 1.803 m (5' 11 ) Wt 72.6 kg (160 lb) SpO2 97% BMI 22.32 kg/m2 Physical Exam Constitutional: He is oriented to person, place, and time and well-developed, well-nourished, and in no distress. Vital signs are normal. He appears not lethargic and not dehydrated. He appears healthy. Non-toxic appearance. He has a sickly appearance. No distress. HENT: Right Ear: Tympanic membrane and ear canal normal. Left Ear: Tympanic membrane and ear canal normal. Nose: Right sinus exhibits maxillary sinus tenderness and frontal sinus tenderness. Left sinus exhibits maxillary sinus tenderness and frontal sinus tenderness. Mouth/Throat: Uvula is midline. Posterior oropharyngeal erythema present. Lymphadenopathy: He has cervical adenopathy. Right cervical: Superficial cervical adenopathy present. Left cervical: Superficial cervical adenopathy present. Neurological: He is oriented to person, place, and time. He appears not lethargic. Vitals reviewed. ASSESSMENT: No results found for this visit on 02/09/17. Encounter Diagnosis Name Primary? Acute non-recurrent maxillary sinusitis Yes PLAN: Orders Placed This Encounter ??? amoxicillin (AMOXIL) 875 MG tablet Sig: Take 1 Tab by mouth 2 times daily for 10 days Dispense: 20 Tab Refill: 0 ??? fluticasone propionate (FLONASE) 50 MCG/ACT nasal spray Sig: [place] 1 [place]t into each nostril 2 times daily Dispense: 1 Bottle Refill: 0 Use over the counter salt water nasal spray as needed to help decrease inflammation, dryness and thin mucus. Use an over the counter intranasal steroid nose spray after salt water nasal spray for congestion, such as Flonase, Rhinocort, Nasacort, Clarispray- 1 spray each nostril twice daily. If planning to fly, use a nasal decongestant (Vicks, Dristan or Afrin spray) 3 days prior to flying- USE FOR A MAX OF 3 DAYS ONLY. Warm salt water gargles, warm soups and decaffeinated beverages, chloraseptic spray, lozenges, ice chips, popsicles and honey for soothing sore throat. Increase water intake and rest. Ibuprofen or Tylenol for pain or fever. Mucinex over the counter for productive cough and thick nasal mucus. Add humidity to help with nasal dryness. Avoid antihistamines as they cause more dryness. Warm, moist compresses to face for comfort documented in this encounter Plan of Treatment Not on file documented as of this encounter Visit Diagnoses Diagnosis Acute non-recurrent maxillary sinusitis- Primary documented in this encounter
--- OUTSIDE RECORDS SUMMARY | 2024-10-21 14:14 | XMS_ITS | Clinical Summary ---
Author Organization [facility] Address [address] [place] [address] Care Team Providers Care Ichthyology Teacher Name Role Phone Unavailable Primary Care Provider Unavailabl e Source Comments [facility],non-owned Affiliates and Associated Physician Practices is amultiple site organization consisting of ambulatory clinics and hospital sitesin [place], [place], [place] and [place]. This disclosure is being madepursuant to the Care Everywhere program and may not contain all information available regarding this patient. Last updated 18.[facility] Allergies No known active allergies Medications * Be aware that medications may not be up to date on this document. Alwaysverify current medications with the patient. Medication Sig Dispensed Refills Start Date End Date Status fluticasone propionate (FLONASE) 50 MCG/ACT nasal spray [place] 1 [place] into each nostril 2 times daily 1 [...] extremity 08/15/2021 Paresthesia of upper extremity 08/15/2021 Family History Medical History Relation Name Comments Diabetes Father Heart defect Mother Relation Name Status Comments Father Mother Social History Tobacco Use Types Packs/Day Years [...] 08/15/2021 4:13 PM CDT Plan of Treatment Health Maintenance Due Date Last Done Comments LIPID TESTING 1981 PNEUMOCOCCAL VACCINE (1 of 2 - PCV) 1987 HIV SCREENING 02/06/1996 HEPATITIS C SCREENING 02/01/1999 DTAP/TDAP/TD VACCINES (1 - Tdap) 02/06/2000 HEPATITIS B VACCINE (1 of 3 - 19+ 3-dose series) 02/06/2000 DEPRESSION SCREENING 10/14/2023 COVID-19 VACCINE (1 - 2023-2 5 season) 2024 INFLUENZA VACCINE (#1) 2024 ZOSTER VACCINE (1 of 2) 2031 HIB VACCINE Aged Out No longer eligi ble based on patient's age to complete this topic HPV VACCINE Aged Out No longer eligi ble based on patient's age to complete this topic MENINGOCOCCAL VACCINE Aged Out No seb eva eligible based on patient's age to complete this topic Advance Directives * Full Code (Latest Code Status on File) Date Activated Date Inactivated Comments 08/15/2021 9:12 PM 08/16/2021 3:39 PM * Full Code Date Activated Date Inactivated Comments 08/15/2021 8:42 PM 08/15/2021 9:12 PM
--- OUTSIDE RECORDS SUMMARY | 2024-10-21 14:14 | XMS_ITS | Encounter Summary ---
Author Organization [facility] Address [address] [place] [address] Care Team Providers Care Gum Worker Name Role Phone Unavailable Primary Care Provider Unavailabl e Reason for Visit * Reason Onset Date Comments Follow-up 02/11/2017 Encounter Details Date Type Department Care Team (Late st Contact Info) Description 02/11/2017 Telephone [facility] [employer] [facility] AT [address] [phone] Radha Terry Follow-up Social History Tobacco Use Types Packs/Day Years Used Date Smoking Tobacco: Former Sex and Gender Information Value Date Recorded Sex Assigned at Not on file Gender Identity Not on file Sexual Orientation Not on file documented as of this encounter Plan of Treatment Not on file documented as of this encounter Visit Diagnoses Not on filedocumented in this encounter
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
== END 2024-10-14 18:25 | disposition left against medical advice (07) ==
PROVIDERS: PCP Family Medicine
DX: S39.92XA Unspecified injury of lower back, initial encounter (principal)
CPT/HCPCS: 99199

== ENCOUNTER 2025-01-18 12:08 | Outpatient (CLI) | payer OTHER, SELFPAY ==
[2025-01-18 12:39] LABS: Basophils Absolute Auto 0.1 K/mm3 (0.0-0.1); Basophils Percent Auto 1.2 % (0.2-1.2); Eosinophils Absolute Auto 0.1 K/mm3 (0-0.3); Eosinophils Percent Auto 1.6 % (0-4.4); Hematocrit 45.5 % (42.0-52.0); Hemoglobin 14.7 g/dL (14.0-18.0); Immature Granulocyte Absolute 0.02 K/mm3 (0.00-0.031); Immature Granulocyte Percent A 0.2 % (0-0.5); Lymphocytes Absolute Auto 2.77 K/mm3 (0.9-3.2); Lymphocytes Percent Auto 33.9 % (18.3-44.2); Mean Corpuscular HGB Conc 32.3 g/dl (32-36); Mean Corpuscular Hemoglobin 29.4 pg (26-34); Mean Platelet Volume 10.2 fl (7.4-10.4); Monocytes Absolute Auto 0.4 K/mm3 (0.1-0.6); Monocytes Percent Auto 4.9 % (2.6-8.5); Neutrophils Absolute Auto 4.7 K/mm3 (1.3-6.7); Neutrophils Percent Auto 58.2 % (45.5-73.1); Platelet Count Result 248 k/mm3 (150-375); Red Cell Distribution Width 12.7 % (11.5-14.5); White Blood Count 8.2 K/mm3 (4.5-10.0)
[2025-01-18 13:00] LABS: Alanine Aminotransferase 19 U/L (6-50); Albumin Level 4.4 g/dL (3.5-5.1); Alkaline Phosphatase 126 U/L (38-126); Anion Gap 10 mmol/L (4-12); Aspartate Amino Transferase 22 U/L (17-59); Bilirubin,Total 0.3 mg/dL (0.2-1.3); Blood Urea Nitrogen 6 mg/dL (9-20); Calcium 9.1 mg/dL (8.4-10.2); Carbon Dioxide 28 mmol/L (22-30); Chloride 104 mmol/L (98-107); Cholesterol 180 mg/dL (0-200); Estimated Glomerular Filt Rate > 60; Glucose 93 mg/dL (65-110); HDL Direct 41 mg/dL; Sodium 142 mmol/L (137-145); Triglycerides 106 mg/dL (<150)
[2025-01-18 13:11] LABS: LDL Cholesterol Direct 113 mg/dL
--- OUTSIDE RECORDS SUMMARY | 2025-01-18 13:56 | XMS_ITS | Clinical Summary ---
Author Organization [facility] Address [address] [place] [address] Care Team Providers Care Prosthetic Aides Teacher Name Role Phone Unavailable Primary Care Provider Unavailabl e Source Comments [facility],non-owned Affiliates and Associated Physician Practices is amultiple site organization consisting of ambulatory clinics and hospital sitesin [place], [place], [place] and [place]. This disclosure is being madepursuant to the Care Everywhere program and may not contain all information available regarding this patient. Last updated 18.[facility] [employer] Allergies No known active allergies Medications * Be aware that medications may not be up to date on this document. Alwaysverify current medications with the patient. Medication Sig Dispensed Refills Start Date End Date Status fluticasone propionate (FLONASE) 50 MCG/ACT nasal spray [place] 1 [place] into each nostril 2 times daily 1 [...] 68 08/16/2021 1:00 PM CDT Temperature 36.7 C (98.1 F) 08/15/2021 4:13 PM CDT Respiratory Rate 12 08/16/2021 12:00 PM CDT Oxygen Saturation 98% 08/16/2021 1:00 PM CDT Inhaled Oxygen Concentration - - Weight 77.1 kg (170 lb) 08/15/2021 4:13 PM CDT Height 182.9 cm (6') 08/15/2021 4:13 PM CDT Body Mass Index 23.06 08/15/2021 4:13 PM CDT Plan of Treatment Health Maintenance Due Date Last Done Comments LIPID TESTING 1981 HIV SCREENING 02/06/1996 HEPATITIS C SCREENING 02/01/1999 DTAP/TDAP/TD VACCINES (1 - Tdap) 02/06/2000 HEPATITIS B VACCINE (1 of 3 - 19+ 3-dose series) 02/06/2000 COVID-19 VACCINE ( - 2023-2 5 season) 2024 DEPRESSION SCREENING 10/14/2024 INFLUENZA VACCINE (Season Ended) 2025 ZOSTER VACCINE (1 of 2) 2031 HIB VACCINE Aged Out No longer eligi ble based on patient's age to complete this topic HPV VACCINE Aged Out No longer eligi ble based on patient's age to complete this topic MENINGOCOCCAL (Group B) VACC INE SHARED DECISION-MAKING Aged Out No longer eligibl e based on patient's age to complete this topic MENINGOCOCCAL GROUPS A/C/Y/W VACCINE Aged Out No longer eligible b ased on patient's age to complete this topic PNEUMOCOCCAL VACCINE Aged Out No long er eligible based on patient's age to complete this topic Advance Directives * Full Code (Latest Code Status on File) Date Activated Date Inactivated Comments 08/15/2021 9:12 PM 08/16/2021 3:39 PM * Full Code Date Activated Date Inactivated Comments 08/15/2021 8:42 PM 08/15/2021 9:12 PM
[2025-01-18 14:22] LABS: Hemoglobin A1C 5.2 % (<5.7)
== END 2025-01-18 12:09 | disposition home or self-care (01) ==
LOC: ANHLAB 12:11
PROVIDERS: PCP Family Medicine; Visit Provider Student in an Organized Health Care Education/Training Program
DX: E78.5 Hyperlipidemia, unspecified (principal); I10 Essential (primary) hypertension; N52.9 Male erectile dysfunction, unspecified; Z83.3 Family history of diabetes mellitus
CPT/HCPCS: 36415; 80053; 80061; 83036; 85025

== ENCOUNTER 2025-03-30 18:49 | Emergency (ER) | payer OTHER, SELFPAY ==
--- NOTE | ~2025-03-30 | XR_ITS ---
CHEST RADIOGRAPH, PA AND LATERAL CLINICAL HISTORY: chest pain . COMPARISON: 11/23/2023 TECHNIQUE: PA and lateral views of the chest. FINDINGS The cardiomediastinal silhouette is unremarkable. The lungs are clear. IMPRESSION: No focal infiltrate or effusion. Reviewed, dictated and finalized at location A.
--- NOTE | 2025-03-30 18:50 | ECG_ITS ---
Test Date: 2025-03-30 18:58:33 Measurements Intervals [place] Rate: 99 P: 69 CT: 149 QRS: 58 QRSD: 89 T: 62 QT: 332 QTc: 426 Interpretive Statements SINUS RHYTHM NORMAL ECG No previous ECG available for comparison Electronically Signed On 03-30-2025 20:59:00 CDT by Cecilio Bradley D.O.
--- OUTSIDE RECORDS SUMMARY | 2025-03-30 18:51 | XMS_ITS | Clinical Summary ---
Author Organization [facility] Address [address] [place] [address] Care Team Providers Care Electric Range Preparer Name Role Phone Unavailable Primary Care Provider Unavailabl e Source Comments [facility],non-owned Affiliates and Associated Physician Practices is amultiple site organization consisting of ambulatory clinics and hospital sitesin [place], [place], [place] and [place]. This disclosure is being madepursuant to the Care Everywhere program and may not contain all information available regarding this patient. Last updated 18.[facility] [employer] Allergies No known active allergies Medications * Be aware that medications may not be up to date on this document. Alwaysverify current medications with the patient. fluticasone propionate (FLONASE) 50 MCG/ACT nasal spray [place] 1 [place] into each nostril 2 times daily 1 Bottle 7 Active acetaminophen (TYLENOL) 325 MG tablet Take 2 (two) tablets by mouth every 4 hours as needed for Fever or Pain Maximum allowable Acetaminophen amount = 4 Grams (4000 mg) / 24 hours. 1 Active oxyCODONE, immediate release, (ROXICODONE) 5 MG tablet Take 1 (one) tablet by mouth every 6 hours as needed for Pain 10 tablet 1 Active Active Problems Problem Noted Date Diagnosed [...] Recorded Sex Assigned at Not on file Legal Sex Male 1:33 PM CDT Gender Identity Not on file Sexual Orientation [...] on patient's age to complete this topic Insurance [facility] [employer] Advance Directives * Full Code (Latest Code Status on File) Date Activated Date Inactivated Comments 08/15/2021 9:12 PM 08/16/2021 3:39 PM * Full Code Date Activated Date Inactivated Comments 08/15/2021 8:42 PM 08/15/2021 9:12 PM
[2025-03-30 18:56] VITALS: BP 111/90; PULSE 104; RESP 27; TEMP 36.6; O2SAT 99
[2025-03-30 19:06] VITALS: BP 109/85; PULSE 94; RESP 20; O2SAT 99
[2025-03-30 19:07] LABS: Basophils Absolute Auto 0.1 K/mm3 (0.0-0.1); Basophils Percent Auto 0.9 % (0.2-1.2); Eosinophils Absolute Auto 0.1 K/mm3 (0-0.3); Eosinophils Percent Auto 0.5 % (0-4.4); Hematocrit 45.3 % (42.0-52.0); Hemoglobin 15.6 g/dL (14.0-18.0); Immature Granulocyte Absolute 0.03 K/mm3 (0.00-0.031); Immature Granulocyte Percent A 0.2 % (0-0.5); Lymphocytes Absolute Auto 3.37 K/mm3 (0.9-3.2); Lymphocytes Percent Auto 25.4 % (18.3-44.2); Mean Corpuscular HGB Conc 34.4 g/dl (32-36); Mean Corpuscular Hemoglobin 28.8 pg (26-34); Mean Corpuscular Volume 83.6 fl (80-100); Monocytes Absolute Auto 0.7 K/mm3 (0.1-0.6); Monocytes Percent Auto 5.2 % (2.6-8.5); Neutrophils Percent Auto 67.8 % (45.5-73.1); Platelet Count Result 292 k/mm3 (150-375); Red Blood Count 5.42 M/mm3 (4.6-6.20); Red Cell Distribution Width 12.4 % (11.5-14.5); White Blood Count 13.3 K/mm3 (4.5-10.0)
--- NOTE | 2025-03-30 19:10 | PC.NURSE ---
Dr. Hill at bedside talking with pt.
--- OUTSIDE RECORDS SUMMARY | 2025-03-30 19:13 | XMS_ITS | Clinical Summary ---
Author Organization [facility] Address [address] [place] [address] Care Team Providers Care Sheet Manufacturing Supervisor Name Role Phone Unavailable Primary Care Provider Unavailabl e Source Comments [facility],non-owned Affiliates and Associated Physician Practices is amultiple site organization consisting of ambulatory clinics and hospital sitesin [place], [place], [place] and [place]. This disclosure is being madepursuant to the Care Everywhere program and may not contain all information available regarding this patient. Last updated 18.[facility] [employer] Allergies No known active allergies Medications * Be aware that medications may not be up to date on this document. Alwaysverify current medications with the patient. fluticasone propionate (FLONASE) 50 MCG/ACT nasal spray [place] 1 [place] into each nostril 2 times daily 1 [...] patient's age to complete this topic Insurance [facility] [employer] Advance Directives * Full Code (Latest Code Status on File) Date Activated Date Inactivated Comments 08/15/2021 9:12 PM 08/16/2021 3:39 PM * Full Code Date Activated Date Inactivated Comments 08/15/2021 8:42 PM 08/15/2021 9:12 PM
[2025-03-30 19:19] LABS: Partial Thromboplastin Time 29.9 Seconds (22.3-36.8)
[2025-03-30 19:24] LABS: Alanine Aminotransferase 19 U/L (6-50); Albumin Level 4.7 g/dL (3.5-5.1); Alkaline Phosphatase 137 U/L (38-126); Anion Gap 13 mmol/L (4-12); Aspartate Amino Transferase 27 U/L (17-59); Bilirubin,Total 0.8 mg/dL (0.2-1.3); Blood Urea Nitrogen 7 mg/dL (9-20); Calcium 9.5 mg/dL (8.4-10.2); Carbon Dioxide 19 mmol/L (22-30); Chloride 100 mmol/L (98-107); Estimated CRCL calculation 89 ml/min; Estimated Glomerular Filt Rate > 60; Glucose 133 mg/dL (65-110); Lipase 51 U/L (23-300); Potassium 3.8 mmol/L (3.4-5.0); Sodium 132 mmol/L (137-145); Total Protein 8.2 g/dL (6.3-8.2)
[2025-03-30 19:36] LABS: Troponin I < 0.012 ng/mL (0.000-0.034)
[2025-03-30] MEDS: ASPIRIN 81 MG CHEWABLE TABLET 324 MG PO (19:47)
[2025-03-30] MEDS: KETOROLAC 30 MG/ML VIAL (*BKC) IV PUSH (19:47)
[2025-03-30] MEDS: SODIUM CHLORIDE 0.9% IV 1,000 ML 999 ML IV CONT (19:48)
--- NOTE | 2025-03-30 20:21 | ED_ITS ---
HPI - Chest Pain General Chief Complaint: Chest Pain Stated Complaint: chest pain, back pain Time Seen by Provider: 03/30/25 18:53 History of Present Illness HPI narrative: 45-year-old with a history of hypertension presents to the ER with a complaint of midsternal chest pain started this afternoon while the workup. 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 He states that he was nauseated and had some chills. Presently chest pain is very minimal. No previous history of CAD. MD complaint: chest pain Onset (ago): hour(s) (2) Timing of current episode: constant Related Data Allergies Allergy/AdvReac Type Severity Reaction Status Date / Time azithromycin Allergy Unknown HIVES Verified 03/26/25 13:08 lamotrigine Allergy Unknown abd pain Verified 03/26/25 13:08 Review of Systems 2 Review of Systems: All systems reviewed & are unremarkable except as noted in HPI and below Eyes: Eyes: Reports no additional eye complaints ENT: Reports system reviewed and no additional complaints, except as documented Cardiovascular: Cardiovascular: Reports as per HPI and Reports no additional cardiovascular complaints Respiratory: Respiratory: Reports no additional respiratory complaints Gastrointestinal: Gastrointestinal: Reports as per HPI Musculoskeletal: Musculoskeletal: Reports no additional musculoskeletal complaints Integumentary/Breasts: Skin/Breast: Reports system reviewed and no additional complaints, except as docu Neurologic: Reports system reviewed and no additional complaints, except as documented PMF Past Medical History Medical History Varicella zoster History of seizure disorder Tobacco use Insomnia Major depressive disorder, recurrent, moderate Family History Family History Mother Hypertension Family history of heart disease in male family member before age 55 Father Family history of diabetes mellitus in first degree relative Social History Social History Social History: Smoking packs per day: 1 Smoking cigarettes per day: 20.0 Years smoked: 28 Smoking pack-years: 28.00 Smoking status: Current every day smoker Tobacco type: cigarettes Second hand tobacco smoke exposure: Yes Alcohol intake: never Substance use: never Substance use type: does not use Do You Feel Safe in your Home?: Yes Lack of Transportation: No Lack of Food: Never True Current Housing: I Have Housing Concerned About Future Housing: No Difficulty Paying Gas/Electric Bills: No Difficulty Paying for Meds: No Currently Unemployed: No Education: Don't Know Difficulty w/ Childcare or Family Care: No Living arrangements: with family Occupation/Education: occupation Gender identity (if verbalized by the patient): Male Sexual Orientation (if Verbalized by the Patient): Straight or Heterosexual Exam 2 Narrative: GENERAL: Well-appearing, well-nourished, and in no acute distress. HEAD: Normocephalic, atraumatic. EYES: PERRLA and EOMI. ENT: Nares clear, no rhinorrhea or epistaxis. Mucous membranes moist. NECK: Supple. CHEST: Clear to auscultation. No respiratory distress. HEART: Regular rate and rhythm. No murmur heard. Normal peripheral pulses. ABDOMEN: Soft, nontender, nondistended, normal active bowel sounds. EXTREMITIES: Normal range of motion. No edema. SKIN: Warm, dry, no rash. NEURO: No focal deficits. Alert and oriented x3. PSYCH: Normal mood and affect. Course Course Emergency Course: Patient feeling much better after IV fluids and IV Toradol. Did inform him about his lab work, his EKG findings. Most likely cause of his pain appears to be MSK plus it exhaustion. Recommended him to stay in does drink more fluids take Tylenol for pain as needed Vital Signs Vital signs: Vital Signs Temperature 36.6 C 03/30/25 18:56 Pulse Rate 104 H 03/30/25 18:56 Respiratory Rate 27 H 03/30/25 18:56 Blood Pressure 111/90 03/30/25 18:56 Pulse Oximetry 99 03/30/25 18:56 Oxygen Delivery Room Air 03/30/25 18:56 Temperature 36.6 C 03/30/25 18:56 Pulse Rate 94 03/30/25 19:06 Respiratory Rate 20 03/30/25 19:06 Blood Pressure 109/85 03/30/25 19:06 Pulse Oximetry 99 03/30/25 19:06 Oxygen Delivery Room Air 03/30/25 18:56 MDM - Chest Pain Differential Diagnosis Differential diagnosis: Likely unstable angina pectoris, chest pain and other (MSK pain , dehydration) Medical Records Data Attestation: I reviewed the patient's medical records. Lab Data Attestation: I reviewed the patient's lab results. 03/30/25 18:59 03/30/25 18:59 Labs: Lab Results 03/30/25 Range/Units 18:59 WBC 13.3 H (4.5-10.0) K/mm3 RBC 5.42 (4.6-6.20) M/mm3 Hgb 15.6 (14.0-18.0) g/dL Hct 45.3 (42.0-52.0) % MCV 83.6 (80-100) fl MCH 28.8 (26-34) pg MCHC 34.4 (32-36) g/dl RDW 12.4 (11.5-14.5) % Plt Count 292 (150-375) k/mm3 MPV 10.0 (7.4-10.4) fl Immature Gran % (Auto) 0.2 (0-0.5) % Neut % (Auto) 67.8 (45.5-73.1) % Lymph % (Auto) 25.4 (18.3-44.2) % [place] % (Auto) 5.2 (2.6-8.5) % Eos % (Auto) 0.5 (0-4.4) % Baso % (Auto) 0.9 (0.2-1.2) % Lymph # (Auto) 3.37 H (0.9-3.2) K/mm3 [place] # (Auto) 0.7 H (0.1-0.6) K/mm3 Eos # (Auto) 0.1 (0-0.3) K/mm3 Baso # (Auto) 0.1 (0.0-0.1) K/mm3 Abs Immat Gran (auto) 0.03 (0.00-0.031) K/mm3 Absolute Neuts (auto) 9.0 H (1.3-6.7) K/mm3 Absolute Nucleated RBC 0.000 (0.0-0.012) K/mm3 Nucleated RBC % 0.0 (0.0-0.2) % PT 13.0 (11.1-14.7) Seconds INR 1.0 APTT 29.9 (22.3-36.8) Seconds Sodium 132 L (137-145) mmol/L Potassium 3.8 (3.4-5.0) mmol/L Chloride 100 (98-107) mmol/L Carbon Dioxide 19 L (22-30) mmol/L Anion Gap 13 H (4-12) mmol/L BUN 7 L (9-20) mg/dL Creatinine 0.96 (0.7-1.3) mg/dL Estim Creat Clear Calc 89 ml/min Estimated GFR > 60 (59 - ) Glucose 133 H (65-110) mg/dL Calcium 9.5 (8.4-10.2) mg/dL Total Bilirubin 0.8 (0.2-1.3) mg/dL AST 27 (17-59) U/L ALT 19 (6-50) U/L Alkaline Phosphatase 137 H (38-126) U/L Troponin I < 0.012 (0.000-0.034) ng/mL Total Protein 8.2 (6.3-8.2) g/dL Albumin 4.7 (3.5-5.1) g/dL Lipase 51 (23-300) U/L ECG Data EKG #1: ECG completion date: 03/30/25 ECG completion time: 18:58 EKG Interpretation: normal rate (99), sinus rhythm, no ectopy, no ST changes and normal QRS Discharge Plan Discharge Clinical Impression: Chest pain, non-cardiac Heat exhaustion Qualifiers: Encounter type: initial encounter Qualified Code(s): T67.5XXA - Heat exhaustion, unspecified, initial encounter Patient Disposition: Home Condition: Stable Instructions: Chest Pain (ED), Heat Exhaustion (ED) Additional Instructions: Drink more fluids , rest , follow with your doctor as needed. Patient Language: Italian Prescriptions: No Action albuterol sulfate [Ventolin HFA] 90 mcg/actuation HFA aerosol inhaler 2 puff inhalation QID PRN (Reason: shortness of breath or wheezing) Qty: 8.5 0RF lisinopril-hydrochlorothiazide 20-12.5 mg tablet 1 tablet PO DAILY Qty: 30 1RF cyclobenzaprine 5 mg tablet 5 mg PO TID PRN (Reason: muscle spasm) Qty: 60 0RF triamcinolone acetonide 0.1 % cream 1 applic topical BID Qty: 30 0RF paroxetine HCl [Paxil] 20 mg tablet 20 mg PO DAILY Qty: 90 1RF omeprazole 40 mg capsule,delayed release(DR/EC) See Rx Instructions .ROUTE .COMPLEX Qty: 90 0RF Dose Instruction: TAKE 1 CAPSULE BY MOUTH DAILY Rx Instructions: TAKE 1 CAPSULE BY MOUTH DAILY tadalafil [Cialis] 10 mg tablet 10 mg PO DAILY PRN (Reason: sexual activity) Qty: 30 0RF Rx Instructions: administer approximately 30min before sexual activity; do not use more than 1 dose per 24hrs Follow-up/Referrals: Emil Walton MD [Primary Care Provider] - Time of Disposition: 20:23
== END 2025-03-30 20:53 | disposition home or self-care (01) ==
PROVIDERS: Emergency Provider Family Medicine; PCP Family Medicine
DX: R07.89 Other chest pain (principal); T67.5XXA Heat exhaustion, unspecified, initial encounter; G40.909 Epilepsy, unspecified, not intractable, without status epilepticus; I10 Essential (primary) hypertension; F17.210 Nicotine dependence, cigarettes, uncomplicated; F33.1 Major depressive disorder, recurrent, moderate; Z79.899 Other long term (current) drug therapy
CPT/HCPCS: 36415; 71046; 80053; 83690; 84484; 85025; 85610; 85730; 93005; 96361; 96374; 99284; A9270; J1885; J7030

== ENCOUNTER 2025-05-10 01:50 | Day surgery (SDC) | payer OTHER, SELFPAY ==
[2025-04-27 14:23] VITALS: BMI 20.9
--- OUTSIDE RECORDS SUMMARY | 2025-05-10 01:53 | XMS_ITS | Clinical Summary ---
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 This disclosure is being madepursuant to the Care Everywhere program and may not contain all information available regarding this patient. Last updated 18.[facility] [employer] Allergies No known active allergies Medications * Be aware that medications may not be up to date on this document. Alwaysverify current medications with the patient. fluticasone propionate (FLONASE) 50 MCG/ACT nasal spray [place] 1 [place] into each nostril 2 times daily 1 [...] of 3 - 19+ 3-dose series) 02/06/2000 HPV VACCINE (1 - 3-dose SCDM series) 02/06/2008 COVID-19 VACCINE ( - 2023-2 5 season) 2024 DEPRESSION SCREENING 10/14/2024 INFLUENZA VACCINE (#1) 2025 ZOSTER VACCINE (1 of 2) 2031 [...] patient's age to complete this topic Insurance [place] [address] [employer] Advance Directives * Full Code (Latest Code Status on File) Date Activated Date Inactivated Comments 08/15/2021 9:12 PM 08/16/2021 3:39 PM * Full Code Date Activated Date Inactivated Comments 08/15/2021 8:42 PM 08/15/2021 9:12 PM
[2025-05-10 09:23] VITALS: BP 106/82; PULSE 110; RESP 18; TEMP 36.7; O2SAT 100; BMI 20.1
[2025-05-10] MEDS: LACTATED RINGERS 1,000 ML 150 ML IV CONT (09:45)
--- NOTE | 2025-05-10 09:46 | WPDANESEPPF ---
Anes - Initial Pre Proc Eval Procedure: Operation Date: 05/10/25 10:30 Proposed Procedures p Screening Colonoscopy - Neto Carcamo DO Date/Time: 05/10/25 09:46 Surgeon: Neto Carcamo DO Pre Op Diagnosis: Neoplasm screening Patient Data Age: 45 Gender: M Height: 1.83 m Weight: 67.3 kg Last Vital Signs Temp 36.7 C 05/10/25 09:23 Pulse 110 H 05/10/25 09:23 Resp 18 05/10/25 09:23 BP 106/82 05/10/25 09:23 Pulse Ox 100 05/10/25 09:23 O2 Del Method Room Air 05/10/25 09:23 Allergies Allergy/AdvReac Type Severity Reaction Status Date / Time azithromycin Allergy Unknown HIVES Verified 05/10/25 09:32 lamotrigine Allergy Unknown abd pain Verified 05/10/25 09:32 Home Medications ?Medication ?Instructions ?Recorded ?Confirmed ?Type paroxetine HCl 20 mg tablet (Paxil) 20 mg PO DAILY #90 tabs 11/15/23 04/30/25 Rx triamcinolone acetonide 0.1 % 1 applic topical BID #30 grams 11/15/23 05/10/25 Rx topical cream albuterol sulfate 90 mcg/actuation 2 puff inhalation QID PRN 09/22/24 04/30/25 Rx aerosol inhaler (Ventolin HFA) shortness of breath or wheezing #8.5 grams tadalafil 10 mg tablet (Cialis) 10 mg PO DAILY PRN sexual activity 01/15/25 04/30/25 Rx #30 tabs cyclobenzaprine 5 mg tablet 5 mg PO TID PRN muscle spasm #60 03/26/25 04/30/25 Rx tabs omeprazole 40 mg capsule,delayed See Rx Instructions .Route 04/13/25 05/10/25 Rx release .COMPLEX #90 caps varenicline tartrate 0.5 mg tablet mg 04/27/25 04/30/25 History lisinopril 20 1 tablet PO DAILY #90 tabs 04/30/25 05/10/25 Rx mg-hydrochlorothiazide 12.5 mg tablet Patient hx anesthesia problems: other (slow to awaken) Family hx anesthesia problems: none Results Review: All pre-operative results and documents have been reviewed as part of the pre-operative evaluation. [facility] Past Medical History Medical History Varicella zoster History of seizure disorder Tobacco use Insomnia Major depressive disorder, recurrent, moderate Family History Family History Mother Hypertension Family history of heart disease in male family member before age 55 Father Family history of diabetes mellitus in first degree relative Social History Social History Social History: Smoking packs per day: 1 Smoking cigarettes per day: 20.0 Years smoked: 28 Smoking pack-years: 28.00 Smoking status: Current every day smoker Tobacco type: cigarettes Second hand tobacco smoke exposure: Yes Alcohol intake: never Substance use: never Substance use type: does not use Do You Feel Safe in your Home?: Yes Lack of Transportation: No Lack of Food: Never True Current Housing: I Have Housing Concerned About Future Housing: No Difficulty Paying Gas/Electric Bills: No Difficulty Paying for Meds: No Currently Unemployed: No Education: Don't Know Difficulty w/ Childcare or Family Care: No Living arrangements: with friend(s) Occupation/Education: occupation Gender identity (if verbalized by the patient): Male Sexual Orientation (if Verbalized by the Patient): Straight or Heterosexual Spiritual care concerns: No Anes - Eval Final PreProcedure Day of Procedure 05/10/25 09:46 Patient weight: normal Heart: regular rate and rhythm Lungs: decreased breath sounds Airway: Mallampati scale class II and special considerations (tongue piercing) Neurological: alert and oriented Last oral intake: >/= 8 hours ASA classification: III Emergent: no Anesthetic plan: proceed Anesthesia type and monitoring: general Results Review: All pre-operative results and documents have been reviewed as part of the pre-operative evaluation. Informed Consent: The patient's anesthetic plan and its attendant risks and benefits were discussed with the patient/family/POA. Questions were solicited and answers provided to the satisfaction of the patient/family/POA.
--- NOTE | 2025-05-10 10:06 | PM.IMHP ---
H&P: HPI History of Present Illness Date/Time: 05/10/25 10:06 Chief Complaint: family history of colon cancer Narrative: this is a 45-year-old man who presents for his 1st colonoscopy. His father was recently diagnosed and from colon cancer in his 60s. Patient denies any hematochezia or melena. Review of Systems Review of Systems: All systems reviewed & are unremarkable except as noted in HPI and below Constitutional: Constitutional: Denies chills, Denies fever(s), Denies headache(s) and Denies weight loss Eyes: Eyes: Denies change in vision ENT: Denies dizziness, Denies headache(s), Denies neck mass and Denies throat swelling Cardiovascular: Cardiovascular: Denies chest pain, Denies lightheadedness and Denies dyspnea Respiratory: Respiratory: Denies cough, Denies dyspnea and Denies wheezing Gastrointestinal: Gastrointestinal: Denies abdominal pain, Denies change in bowel habits, Denies nausea and Denies vomiting Genitourinary: Genitourinary: Denies hematuria and Denies dysuria Musculoskeletal: Musculoskeletal: Reports as per HPI Integumentary/Breasts: Skin/Breast: Reports as per HPI Neurologic: Denies dizziness and Denies headache(s) Allergic/Immunologic: Allergic/Immunologic: Denies throat swelling and Denies wheezing PMFSH Past Medical History Medical History Varicella zoster History of seizure disorder Tobacco use Insomnia Major depressive disorder, recurrent, moderate Family History Family History Mother Hypertension Family history of heart disease in male family member before age 55 Father Family history of diabetes mellitus in first degree relative Social History Social History Social History: Smoking packs per day: 1 Smoking cigarettes per day: 20.0 Years smoked: 28 Smoking pack-years: 28.00 Smoking status: Current every day smoker Tobacco type: cigarettes Second hand tobacco smoke exposure: Yes Alcohol intake: never Substance use: never Substance use type: does not use Do You Feel Safe in your Home?: Yes Lack of Transportation: No Lack of Food: Never True Current Housing: I Have Housing Concerned About Future Housing: No Difficulty Paying Gas/Electric Bills: No Difficulty Paying for Meds: No Currently Unemployed: No Education: Don't Know Difficulty w/ Childcare or Family Care: No Living arrangements: with friend(s) Occupation/Education: occupation Gender identity (if verbalized by the patient): Male Sexual Orientation (if Verbalized by the Patient): Straight or Heterosexual Spiritual care concerns: No Meds Home Medications and Allergies Home Medications ?Medication ?Instructions ?Recorded ?Confirmed ?Type paroxetine HCl 20 mg tablet (Paxil) 20 mg PO DAILY #90 tabs 11/15/23 04/30/25 Rx triamcinolone acetonide 0.1 % 1 applic topical BID #30 grams 11/15/23 05/10/25 Rx topical cream albuterol sulfate 90 mcg/actuation 2 puff inhalation QID PRN 09/22/24 04/30/25 Rx aerosol inhaler (Ventolin HFA) shortness of breath or wheezing #8.5 grams tadalafil 10 mg tablet (Cialis) 10 mg PO DAILY PRN sexual activity 01/15/25 04/30/25 Rx #30 tabs cyclobenzaprine 5 mg tablet 5 mg PO TID PRN muscle spasm #60 03/26/25 04/30/25 Rx tabs omeprazole 40 mg capsule,delayed See Rx Instructions .Route 04/13/25 05/10/25 Rx release .COMPLEX #90 caps varenicline tartrate 0.5 mg tablet mg 04/27/25 04/30/25 History lisinopril 20 1 tablet PO DAILY #90 tabs 04/30/25 05/10/25 Rx mg-hydrochlorothiazide 12.5 mg tablet Allergies Allergy/AdvReac Type Severity Reaction Status Date / Time azithromycin Allergy Unknown HIVES Verified 05/10/25 09:32 lamotrigine Allergy Unknown abd pain Verified 05/10/25 09:32 Vital Signs Vital Signs - 24 hr 05/10/25 09:23 Temperature 98.1 F Pulse Rate 110 H Respiratory Rate 18 Blood Pressure 106/82 Pulse Oximetry 100 Oxygen Delivery Room Air Exam Const: General: no acute distress and alert Orientation/consciousness: patient oriented x3 HENMT: Head: normocephalic and atraumatic Ears: hearing grossly normal bilaterally Face/Nose/Sinus: Normal nares present Mouth: Yes Normal oral and palatal mucosa present Eyes: Periorbital: periorbital findings normal Sclera: sclerae normal EOM: EOMs intact bilaterally Neck: Neck: normal visual inspection, no lymphadenopathy and trachea midline Chest: Chest palpation & inspection: normal inspection of the chest Resp: Effort & Inspection: normal respiratory effort Auscultation: clear to auscultation bilaterally Cardio: Jugular venous distension: no JVD Rate: regular rate Rhythm: regular rhythm Heart sounds: S1 normal heart sound present and S2 normal heart sound present Peripheral pulses: Peripheral pulses 2+ throughout GI: Inspection: normal to inspection GI Palp: Yes Soft to palpation, No Tenderness to palpation present (GI), No Guarding due to palpation present (GI) and No Rebound tenderness present Percussion: Yes normal to percussion Auscultation: normal bowel sounds : General: Yes no CVA tenderness Back/Spine/Pelvis: Back: no CVA tenderness Neuro: General: patient oriented x3, no focal motor deficits and CN's II-XI intact bilaterally Cognition (Neuro): normal cognition Speech: normal speech Motor exam (neuro): 5/5 motor strength present throughout Extrem: General: capillary refill normal and no clubbing, cyanosis or edema Assessment and Plan Assessment and plan (1) Family history of colon cancer: Code(s): Z80.0 - Family history of malignant neoplasm of digestive organs Status: Acute Assessment and Plan: I have recommended colonoscopy. I have discussed the procedure, risks, benefits, and alternatives. Questions were answered. Patient is agreeable to proceed.
--- NOTE | 2025-05-10 10:35 | S_PTH ---
PATIENT: Garfield Rosa LOC: [facility] U#:[id number] AGE/SX: 45/M ROOM: RE05/10/[address]: Neto Carcamo DO : 1980 BED: DIS: 05/10/2025 SPEC #: [id number] RECD: 05/10/25 11:15 STATUS: TONY REAntwon #: [id number] SHAUN: 05/10/25 10:[address]: Neto Carcamo DEPT: [facility] Surgical RECD BY: Staci Patel ENTERED: 05/10/25 11:15 SP TYPE: Surgical OTHR DR: Emil Walton MD Tissues: A - Colon Polypectomy Procedures: Hematoxylin and Eosin Stain Gross and Microscopic Level 4 P16
[2025-05-10 10:44] VITALS: BP 107/73; PULSE 72; RESP 15; O2SAT 100
[2025-05-10 10:54] VITALS: BP 105/73; PULSE 76; RESP 21; O2SAT 100
[2025-05-10 11:04] VITALS: BP 110/76; PULSE 71; RESP 18; O2SAT 100
== END 2025-05-10 11:08 | disposition home or self-care (01) ==
PROVIDERS: PCP Family Medicine; Visit Provider Surgery
PROC: 0DJD8ZZ Inspection of Lower Intestinal Tract, Via Natural or Artificial Opening Endoscopic (ICD-10-PCS; CPT 45378; principal; 2025-05-10 10:30)
DX: Z12.11 Encounter for screening for malignant neoplasm of colon (principal); D12.8 Benign neoplasm of rectum; R85.612 Low grade squamous intraepithelial lesion on cytologic smear of anus (LGSIL); G47.00 Insomnia, unspecified; F33.1 Major depressive disorder, recurrent, moderate; F17.210 Nicotine dependence, cigarettes, uncomplicated; Z79.51 Long term (current) use of inhaled steroids; Z80.0 Family history of malignant neoplasm of digestive organs; Z82.49 Family history of ischemic heart disease and other diseases of the circulatory system
CPT/HCPCS: 45385; 88305; 88342; J2704; J7120

== ENCOUNTER 2025-07-27 13:51 | Emergency (ER) | payer OTHER, SELFPAY ==
[2025-07-27 13:55] VITALS: BP 116/88; PULSE 85; RESP 14; TEMP 36.6; O2SAT 100
--- NOTE | 2025-07-27 14:16 | ED.URI ---
HPI - URI/Sore Throat General Chief Complaint: Upper Respiratory Infection Stated Complaint: Cough/Headache/Dizziness Time Seen by Provider: 07/27/25 14:15 Source: patient and RN notes reviewed Mode of arrival: ambulatory Limitations: no limitations History of Present Illness HPI Narrative: 45 year old male with history of COPD presents with concern for several day history of cough, nasal congestion, rhinorrhea, shortness of breath. Reports he uses albuterol inhaler but it is . He denies known sick contacts. Denies fever, aches, chills, sweats. MD elicited complaint: cough and nasal congestion Related Data Home Medications ?Medication ?Instructions ?Recorded ?Confirmed ?Last Taken ?Type varenicline tartrate 0.5 mg tablet mg 04/27/25 04/30/25 05/08/25 History Allergies Allergy/AdvReac Type Severity Reaction Status Date / Time azithromycin Allergy Unknown HIVES Verified 07/27/25 13:53 lamotrigine Allergy Unknown abd pain Verified 07/27/25 13:53 Review of Systems Review of Systems: CONSTITUTIONAL: Denies malaise, chills, sweats, or fever. EYES: Denies visual changes, redness, or discharge. ENT: Reports rhinorrhea, congestion. Denies sinus pain, otalgia and sore throat. CARDIOVASCULAR: Denies chest pain, palpitations, or edema. RESPIRATORY: Reports cough, dyspnea. GASTROINTESTINAL: Denies abdominal pain, nausea, vomiting, diarrhea SKIN: Denies rash or itching. MUSCULOSKELETAL: Denies myalgia. NEUROLOGIC: Denies headache. 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) Varicella zoster History of seizure disorder Tobacco use Insomnia Major depressive disorder, recurrent, moderate Family History Family History Mother Hypertension Family history of heart disease in male family member before age 55 Father Family history of diabetes mellitus in first degree relative Social History Social History Social History: Smoking packs per day: 1 Smoking cigarettes per day: 20.0 Years smoked: 28 Smoking pack-years: 28.00 Smoking status: Current every day smoker Tobacco type: cigarettes Second hand tobacco smoke exposure: Yes Alcohol intake: never Substance use: never Substance use type: does not use Do You Feel Safe in your Home?: Yes Lack of Transportation: No Lack of Food: Never True Current Housing: I Have Housing Concerned About Future Housing: No Difficulty Paying Gas/Electric Bills: No Difficulty Paying for Meds: No Currently Unemployed: No Education: Don't Know Difficulty w/ Childcare or Family Care: No Living arrangements: with friend(s) Occupation/Education: occupation Gender identity (if verbalized by the patient): Male Sexual Orientation (if Verbalized by the Patient): Straight or Heterosexual Spiritual care concerns: No Comments At time of signature, agree with nursing past medical, surgical, social and family history. There is no relevant family history pertinent to the presenting complaint Exam Narrative: GENERAL: Well-appearing, well-nourished, and in no acute distress. HEAD: Normocephalic EYES: PERRLA, conjunctivae clear ENT: Nares clear, turbinates edematous and erythematous. Mucous membranes moist. TM pearly lee with dull light reflex bilaterally; no tragal tenderness. Oropharynx not erythematous without lesions. Tonsils not enlarged and without exudate, no drooling, no hoarseness, no trismus, uvula midline. NECK: Supple. No lymphadenopathy CHEST: Clear to auscultation, breath sounds equal. No wheezing, rhonchi, rales, or stridor. No respiratory distress, speaks in full sentences. HEART: Regular rate and rhythm. No murmur heard. SKIN: Warm, dry, no rash. NEURO: Alert and oriented x3. PSYCH: Normal mood and affect Course Course Emergency Course: Patient is aware of diagnosis, understands and agrees to treatment plan. Anticipatory guidance given. Patient agrees to follow-up as directed and is aware of reasons to seek care at the emergency department. Portions of this record may have been created with voice recognition software Level of Care: Express Care Visit Vital Signs Vital signs: Reviewed. MDM - URI/Sore Throat MDM Narrative Medical decision making narrative: Differential diagnosis considered: Mirza virus, strep pharyngitis, allergic rhinitis, upper respiratory tract infection, sinusitis, rhinosinusitis, nasopharyngitis. viral pharyngitis, otitis media, otitis externa, pneumonia, bronchitis, viral cough syndrome, viral syndrome, and influenza. Exam findings show no acute concerns or changes; patient is non-toxic appearing and is in no distress. Patient is appropriate for outpatient treatment and follow-up. Lab Data Attestation: I reviewed the patient's lab results. Critical Care Time Critical Care Time Critical Care Time: No Discharge Plan Discharge Clinical Impression: Sinobronchitis Patient Disposition: Home Condition: Stable Instructions: Antibiotic Form, Acute Bronchitis (ED) Additional Instructions: Take medication as directed Recommend antihistamine such as Benadryl at night time and Zyrtec or Linda during the day Use inhaler as needed for cough, wheezing, shortness of breath or chest tightness. Also, recommend symptomatic treatment includes: rest, fluids, and increase humidity of the air at home. Recommend Acetaminophen as directed on the bottle to reduce fever, pain, headache. Avoid smoking/second-hand smoke. Please schedule a follow-up visit with your personal physician for further evaluation and treatment within 3-5days. If your symptoms persist, change or worsen significantly before you can contact your personal physician then please, without delay, go to the emergency department for further evaluation. Patient Language: Hungarian Prescriptions: New prednisone 20 mg tablet 40 mg PO DAILY 5 Days Qty: 10 0RF doxycycline monohydrate 100 mg tablet 100 mg PO BID 7 Days Qty: 14 0RF albuterol sulfate 90 mcg/actuation HFA aerosol inhaler 2 puff INHALATION QID PRN (Reason: shortness of breath or wheezing) Qty: 8.5 0RF No Action albuterol sulfate [Ventolin HFA] 90 mcg/actuation HFA aerosol inhaler 2 puff inhalation QID PRN (Reason: shortness of breath or wheezing) Qty: 8.5 0RF cyclobenzaprine 5 mg tablet 5 mg PO TID PRN (Reason: muscle spasm) Qty: 60 0RF lisinopril-hydrochlorothiazide 20-12.5 mg tablet 1 tablet PO DAILY Qty: 90 1RF triamcinolone acetonide 0.1 % cream 1 applic topical BID Qty: 30 0RF paroxetine HCl [Paxil] 20 mg tablet 20 mg PO DAILY Qty: 90 1RF tadalafil [Cialis] 10 mg tablet 10 mg PO DAILY PRN (Reason: sexual activity) Qty: 30 0RF Rx Instructions: administer approximately 30min before sexual activity; do not use more than 1 dose per 24hrs varenicline tartrate 0.5 mg tablet omeprazole 40 mg capsule,delayed release(DR/EC) See Rx Instructions .ROUTE .COMPLEX Qty: 90 1RF Dose Instruction: TAKE 1 CAPSULE BY MOUTH DAILY Rx Instructions: TAKE 1 CAPSULE BY MOUTH DAILY Follow-up/Referrals: Emil Walton MD [Primary Care Provider, Family Practice] Stand Alone Forms: Work/School Release IP Time of Disposition: 14:26
== END 2025-07-27 14:40 | disposition home or self-care (01) ==
PROVIDERS: Emergency Provider Nurse Practitioner; PCP Family Medicine
DX: J32.9 Chronic sinusitis, unspecified (principal); J40 Bronchitis, not specified as acute or chronic; F17.210 Nicotine dependence, cigarettes, uncomplicated; F33.9 Major depressive disorder, recurrent, unspecified
CPT/HCPCS: 99213; G0463